=== PATIENT | male | born 1945 | race Caucasian/White ===

== ENCOUNTER 2022-09-21 13:39 | Inpatient (IN) ==
[2022-09-21] MEDS ORDERED: SODIUM CHLORIDE 0.9% 1000ML 500 ML IV ONE (14:00)
--- NOTE | 2022-09-21 14:09 | Emergency Department Note ---
Impression & Plan Stroke-like symptom ED Provider Note NAME: HAL [id number] DONY AGE: 76 SEX: M : 1945 ARRIVES VIA: Ambulance INFORMANT: EMS personnel, the notes from the senior care ED PROVIDER(S): Hansel Mansfield DO CHIEF COMPLAINT: Strokelike symptoms HPI: The patient is a 76-year-old male who presented to the emergency department for an evaluation of strokelike symptoms. The patient has a history of underlying dementia. He was recently our facility. He was in his last known well last evening but reportedly was having right-sided weakness this morning. The patient has severe dementia and is unable to give any of the history. He offers no chest pain or difficulty breathing. He denies having any nausea vomiting or abdominal pain. ROS: See above HPI for pertinent positives & negatives. A total of 10 systems reviewed and were otherwise negative. PAST MEDICAL HISTORY: See Below PAST SURGICAL HISTORY: See Below FAMILY HISTORY: See Below SOCIAL HISTORY: See Below HOME MEDICATIONS: See Below ALLERGIES: See Below VITALS: See Below PHYSICAL EXAMINATION: GENERAL: The patient is awake and looking around the room. He does not appear to be uncomfortable. EYES: The conjunctivae are clear. The pupils are round and reactive. EARS, NOSE, MOUTH AND THROAT: The nose is without any evidence of any deformity. Mucous membranes are dry. NECK: The neck is nontender and supple. RESPIRATORY: Normal respiratory effort is noted there is no evidence of wheezing rhonchi or rales CARDIOVASCULAR: Regular rate and rhythm noted there no murmurs rubs or gallops normal S1 normal S2. GASTROINTESTINAL: The abdomen is distended. There is no guarding or rigidity. MUSCULOSKELETAL/EXTREMITIES: There is no evidence of gross deformity full range of motion is noted in the hips and shoulders. SKIN: Skin is cool and dry. There is no significant edema NEUROLOGIC: Patient is awake but listless. He is oriented to person only. Patient is unable to lift the right leg off the bed. Patient has right upper extremity weakness as well. There is no definite facial droop but there was a reported facial droop according to prehospital personnel. MEDICAL DECISION MAKING: The patient is a 76-year-old male who presented to the emergency department from the senior care for an evaluation of right-sided weakness and does not give much history. On exam he does have right-sided weakness.The patient has some underlying dementia the patient initially was hypotensive. For this reason other laboratory and radiographic studies were obtained other than just a stroke work-up. The patient was reevaluated multiple times. His exam did not change very much. For this reason I [facility] agreed to evaluate the patient in the emergency department for further management and disposition. Triage Nursing notes reviewed. Prior medical records reviewed Vital Signs: reviewed and remarkable for initial hypotension. Differential diagnosis: Infection, dehydration, metabolic abnormality, hypo/hyperglycemia, electrolyte disturbance, anemia, hypoxia, cardiac sources, intracerebral event, toxicologic, neurologic, as well as other pathologies. ER treatment provided: See below Diagnostics interpreted by me: ECG: EKG was obtained in the emergency department. My interpretation is normal sinus rhythm at 85 bpm. There is no ectopy. There is no acute ST segment abnormalities noted. This was compared to a tracing from September 18, 2022. No changes were noted. Cardiac Monitoring: An order was placed for continuous cardiac monitoring. The monitor shows a rate of 89 bpm with sinus rhythm. Laboratory studies: As stated above and show below. Imaging studies: See below. Radiographic imaging was reviewed by myself Consultation(s): I discussed this case with Dr. Traore who [facility] Past Med/Surg History Medical History Dementia Weakness Social History Smoking Status: Never smoker Tobacco Type: Cigarettes Preferred Language: Afghan Feels Safe at Home: Yes Allergies Allergies Allergy/AdvReac Type Severity Reaction Status Date / Time No Known Allergies Allergy Verified 09/21/22 17:57 Home Meds Home Medications Medication Instructions Recorded Confirmed amlodipine 5 mg tablet 5 mg PO BID 09/21/22 09/21/22 cyanocobalamin (vitamin B-12) 500 500 mcg PO QAM 09/21/22 09/21/22 mcg tablet donepezil 5 mg tablet 5 mg PO QAM 09/21/22 09/21/22 Results & Data (ED) Vital Signs Vital Signs - 24 hr 09/21/22 13:31 09/21/22 13:31 09/21/22 13:58 Temperature 37.1 C Temperature Source Oral Pulse Rate 91 H 83 Pulse Rate [Apical] 91 H Pulse Rhythm Regular Pulse Rhythm [Apical] Regular Pulse Strength Normal Pulse Strength [Apical] Normal Respiratory Rate 16 16 Respiratory Effort / Characteristics Non-Labored Non-Labored Respiratory Depth Normal Normal Respiratory Pattern Regular Regular Blood Pressure 91/52 L Blood Pressure [Right Arm] 91/52 L Blood Pressure Mean 65 Blood Pressure Mean [Right Arm] 65 Blood Pressure Position Lying Pulse Oximetry 96 96 Oxygen Delivery Method Room Air Room Air Sepsis Recent Fever Within 48 Hours No Sepsis New/Unexplained Change in Mental Status No Sepsis Action Taken by Nursing No Action Required 09/21/22 14:08 09/21/22 14:34 09/21/22 17:27 Temperature Temperature Source Pulse Rate Pulse Rate [Apical] 94 H 84 87 Pulse Rhythm Pulse Rhythm [Apical] Pulse Strength Pulse Strength [Apical] Respiratory Rate 18 18 20 Respiratory Effort / Characteristics Non-Labored Non-Labored Respiratory Depth Normal Normal Respiratory Pattern Regular Regular Blood Pressure Blood Pressure [Right Arm] 91/52 L 108/72 129/81 Blood Pressure Mean Blood Pressure Mean [Right Arm] 65 84 97 Blood Pressure Position Pulse Oximetry 95 94 94 Oxygen Delivery Method Room Air Room Air Room Air Sepsis Recent Fever Within 48 Hours Sepsis New/Unexplained Change in Mental Status Sepsis Action Taken by Nursing 09/21/22 17:50 09/21/22 18:56 Temperature Temperature Source Pulse Rate 85 Pulse Rate [Apical] 89 Pulse Rhythm Pulse Rhythm [Apical] Pulse Strength Pulse Strength [Apical] Respiratory Rate 20 Respiratory Effort / Characteristics Respiratory Depth Respiratory Pattern Blood Pressure Blood Pressure [Right Arm] 140/88 Blood Pressure Mean Blood Pressure Mean [Right Arm] 105 Blood Pressure Position Pulse Oximetry 97 Oxygen Delivery Method Room Air Sepsis Recent Fever Within 48 Hours Sepsis New/Unexplained Change in Mental Status Sepsis Action Taken by Longterm Medications Current Medication List: was personally reviewed by me Laboratory Data Attestation: I reviewed the patient's lab results. 09/21/22 14:00 09/21/22 14:00 Lab Results 09/21/22 09/21/22 09/21/22 Range/Units 14:00 14:00 14:00 WBC 10.00 (4.8-10.8) K/ul RBC 4.55 L (4.70-6.10) M/uL Hgb 13.7 L (14.0-18.0) g/dl POC Hgb (14.0-18.0) g/dl Hct 41.1 L (42.0-52.0) % POC Hct (42-52) % MCV 90.3 (80.0-100.0) fL MCH 30.1 (25.0-34.0) pg MCHC 33.3 (32.0-36.0) g/dL RDW Std Deviation 40.2 (36.4-46.3) fL RDW Coeff of Jeannine 12.3 (11.5-14.5) % Plt Count 221 (130-400) K/uL MPV 11.4 (9.4-12.4) fL Immature Gran % (Auto) 0.3 % Neut % (Auto) 73.1 % Lymph % (Auto) 16.6 % Park % (Auto) 9.3 % Eos % (Auto) 0.5 % Baso % (Auto) 0.2 % Neut # (Auto) 7.31 H (1.40-6.50) K/uL Lymph # (Auto) 1.66 (1.2-3.4) K/uL Park # (Auto) 0.93 H (0.11-0.59) K/uL Eos # (Auto) 0.05 (0-0.50) K/uL Baso # (Auto) 0.02 (0-0.2) K/uL Immature Gran # (Auto) 0.03 (0.01-0.20) K/uL ESR (0-20) mm/hr PT 11.2 (9.0-12.0) Seconds INR 1.1 (0.9-1.1) APTT 27.0 (21.0-31.0) Seconds PTT Ratio 1.0 POC Sodium (135-144) mmol/L Sodium 136 (136-145) mmol/L POC Potassium (3.3-5.0) mmol/L Potassium 4.0 (3.5-5.1) mmol/L POC Chloride (101-112) mmol/L Chloride 101 (98-107) mmol/L Carbon Dioxide 25 (21-32) mmol/L POC Total CO2 (24-31) mmol/L Anion Gap 10 (3-11) POC Anion Gap (16-25) mmol/L POC BUN (7-18) mg/dl BUN 24 H (6-23) mg/dl Creatinine 0.71 (0.6-1.4) mg/dl POC Creatinine (0.6-1.3) mg/dl Est Cr Clr Drug Dosing 83.0 ml/min Est GFR ( Amer) 104.2 ml/min Est GFR (Non-Af Amer) 89.9 ml/min BUN/Creatinine Ratio 33.8 H (10-20) Glucose 121 H (70-99(Fasting)) mg/dl POC Glucose (other) (70-99) mg/dl Calcium 9.4 (8.6-10.3) mg/dl POC Ioniz Calcium Christelle (1.12-1.32) mmol/l Magnesium 2.3 (1.7-2.4) mg/dl Total Bilirubin 0.9 (0.2-1.0) mg/dl AST 53 H (13-39) U/L ALT 58 H (7-52) U/L Alkaline Phosphatase 112 H (34-104) U/L Troponin I High Sens 14.0 (0-20) pg/ml C-Reactive Protein 7.56 H (0-0.5) mg/dl Total Protein 7.4 (6.0-8.3) gm/dl Albumin 3.9 (3.4-5.0) gm/dl Globulin 3.5 (2.5-4.0) gm/dl Albumin/Globulin Ratio 1.1 (0.9-2) Procalcitonin (0-0.5) ng/ml Urine Color Urine Appearance (Clear) Urine pH (4.5-7.5) Ur Specific [place] (1.000-1.030) Urine Protein (Negative) Urine Glucose (UA) (Negative) Urine Ketones (Negative) Urine Blood (Negative) Urine Nitrite (Negative) Urine Bilirubin (Negative) Urine Urobilinogen (Negative) Ur Leukocyte Esterase (Negative) Urine WBC (Auto) (0-5) /hpf Urine RBC (Auto) (0-4) /hpf U Hyaline Cast (Auto) (0-5) /lpf U Epithel Cells (Auto) (0-5) /lpf Urine Bacteria (Auto) (Negative) Urine Opiates Screen (Neg) Ur Methadone, Qual (Neg) Urine Barbiturates (Neg) Ur Phencyclidine (PCP) (Neg) U Amphetamin/Meth Scrn (Neg) MDMA (Ecstasy) Screen (Neg) U Benzodiazepines Scrn (Neg) Ur Cocaine Metabolite (Neg) U Marijuana (THC) Screen (Neg) 09/21/22 09/21/22 09/21/22 Range/Units 14:00 14:17 14:31 WBC (4.8-10.8) K/ul RBC (4.70-6.10) M/uL Hgb (14.0-18.0) g/dl POC Hgb 14.6 (14.0-18.0) g/dl Hct (42.0-52.0) % POC Hct 43 (42-52) % MCV (80.0-100.0) fL MCH (25.0-34.0) pg MCHC (32.0-36.0) g/dL RDW Std Deviation (36.4-46.3) fL RDW Coeff of Jeannine (11.5-14.5) % Plt Count (130-400) K/uL MPV (9.4-12.4) fL Immature Gran % (Auto) % Neut % (Auto) % Lymph % (Auto) % Park % (Auto) % Eos % (Auto) % Baso % (Auto) % Neut # (Auto) (1.40-6.50) K/uL Lymph # (Auto) (1.2-3.4) K/uL Park # (Auto) (0.11-0.59) K/uL Eos # (Auto) (0-0.50) K/uL Baso # (Auto) (0-0.2) K/uL Immature Gran # (Auto) (0.01-0.20) K/uL ESR 60 H (0-20) mm/hr PT (9.0-12.0) Seconds INR (0.9-1.1) APTT (21.0-31.0) Seconds PTT Ratio POC Sodium 138 (135-144) mmol/L Sodium (136-145) mmol/L POC Potassium 3.9 (3.3-5.0) mmol/L Potassium (3.5-5.1) mmol/L POC Chloride 99 L (101-112) mmol/L Chloride (98-107) mmol/L Carbon Dioxide (21-32) mmol/L POC Total CO2 27 (24-31) mmol/L Anion Gap (3-11) POC Anion Gap 16.0 (16-25) mmol/L POC BUN 24 H (7-18) mg/dl BUN (6-23) mg/dl Creatinine (0.6-1.4) mg/dl POC Creatinine 0.7 (0.6-1.3) mg/dl Est Cr Clr Drug Dosing ml/min Est GFR ( Amer) ml/min Est GFR (Non-Af Amer) ml/min BUN/Creatinine Ratio (10-20) Glucose (70-99(Fasting)) mg/dl POC Glucose (other) 120 H (70-99) mg/dl Calcium (8.6-10.3) mg/dl POC Ioniz Calcium Christelle 1.05 L (1.12-1.32) mmol/l Magnesium (1.7-2.4) mg/dl Total Bilirubin (0.2-1.0) mg/dl AST (13-39) U/L ALT (7-52) U/L Alkaline Phosphatase (34-104) U/L Troponin I High Sens (0-20) pg/ml C-Reactive Protein (0-0.5) mg/dl Total Protein (6.0-8.3) gm/dl Albumin (3.4-5.0) gm/dl Globulin (2.5-4.0) gm/dl Albumin/Globulin Ratio (0.9-2) Procalcitonin 0.06 (0-0.5) ng/ml Urine Color Urine Appearance (Clear) Urine pH (4.5-7.5) Ur Specific [place] (1.000-1.030) Urine Protein (Negative) Urine Glucose (UA) (Negative) Urine Ketones (Negative) Urine Blood (Negative) Urine Nitrite (Negative) Urine Bilirubin (Negative) Urine Urobilinogen (Negative) Ur Leukocyte Esterase (Negative) Urine WBC (Auto) (0-5) /hpf Urine RBC (Auto) (0-4) /hpf U Hyaline Cast (Auto) (0-5) /lpf U Epithel Cells (Auto) (0-5) /lpf Urine Bacteria (Auto) (Negative) Urine Opiates Screen (Neg) Ur Methadone, Qual (Neg) Urine Barbiturates (Neg) Ur Phencyclidine (PCP) (Neg) U Amphetamin/Meth Scrn (Neg) MDMA (Ecstasy) Screen (Neg) U Benzodiazepines Scrn (Neg) Ur Cocaine Metabolite (Neg) U Marijuana (THC) Screen (Neg) 09/21/22 09/21/22 Range/Units 17:23 17:23 WBC (4.8-10.8) K/ul RBC (4.70-6.10) M/uL Hgb (14.0-18.0) g/dl POC Hgb (14.0-18.0) g/dl Hct (42.0-52.0) % POC Hct (42-52) % MCV (80.0-100.0) fL MCH (25.0-34.0) pg MCHC (32.0-36.0) g/dL RDW Std Deviation (36.4-46.3) fL RDW Coeff of Jeannine (11.5-14.5) % Plt Count (130-400) K/uL MPV (9.4-12.4) fL Immature Gran % (Auto) % Neut % (Auto) % Lymph % (Auto) % Park % (Auto) % Eos % (Auto) % Baso % (Auto) % Neut # (Auto) (1.40-6.50) K/uL Lymph # (Auto) (1.2-3.4) K/uL Park # (Auto) (0.11-0.59) K/uL Eos # (Auto) (0-0.50) K/uL Baso # (Auto) (0-0.2) K/uL Immature Gran # (Auto) (0.01-0.20) K/uL ESR (0-20) mm/hr PT (9.0-12.0) Seconds INR (0.9-1.1) APTT (21.0-31.0) Seconds PTT Ratio POC Sodium (135-144) mmol/L Sodium (136-145) mmol/L POC Potassium (3.3-5.0) mmol/L Potassium (3.5-5.1) mmol/L POC Chloride (101-112) mmol/L Chloride (98-107) mmol/L Carbon Dioxide (21-32) mmol/L POC Total CO2 (24-31) mmol/L Anion Gap (3-11) POC Anion Gap (16-25) mmol/L POC BUN (7-18) mg/dl BUN (6-23) mg/dl Creatinine (0.6-1.4) mg/dl POC Creatinine (0.6-1.3) mg/dl Est Cr Clr Drug Dosing ml/min Est GFR ( Amer) ml/min Est GFR (Non-Af Amer) ml/min BUN/Creatinine Ratio (10-20) Glucose (70-99(Fasting)) mg/dl POC Glucose (other) (70-99) mg/dl Calcium (8.6-10.3) mg/dl POC Ioniz Calcium Christelle (1.12-1.32) mmol/l Magnesium (1.7-2.4) mg/dl Total Bilirubin (0.2-1.0) mg/dl AST (13-39) U/L ALT (7-52) U/L Alkaline Phosphatase (34-104) U/L Troponin I High Sens (0-20) pg/ml C-Reactive Protein (0-0.5) mg/dl Total Protein (6.0-8.3) gm/dl Albumin (3.4-5.0) gm/dl Globulin (2.5-4.0) gm/dl Albumin/Globulin Ratio (0.9-2) Procalcitonin (0-0.5) ng/ml Urine Color Yellow Urine Appearance Clear (Clear) Urine pH 6.5 (4.5-7.5) Ur Specific [place] > 1.045 H (1.000-1.030) Urine Protein Trace H (Negative) Urine Glucose (UA) Negative (Negative) Urine Ketones 1+ H (Negative) Urine Blood Negative (Negative) Urine Nitrite Negative (Negative) Urine Bilirubin Negative (Negative) Urine Urobilinogen Negative (Negative) Ur Leukocyte Esterase Negative (Negative) Urine WBC (Auto) 1-5 (0-5) /hpf Urine RBC (Auto) 0-4 (0-4) /hpf U Hyaline Cast (Auto) 0 (0-5) /lpf U Epithel Cells (Auto) 5-10 H (0-5) /lpf Urine Bacteria (Auto) Negative (Negative) Urine Opiates Screen Neg (Neg) Ur Methadone, Qual Neg (Neg) Urine Barbiturates Neg (Neg) Ur Phencyclidine (PCP) Neg (Neg) U Amphetamin/Meth Scrn Neg (Neg) MDMA (Ecstasy) Screen Neg (Neg) U Benzodiazepines Scrn Neg (Neg) Ur Cocaine Metabolite Neg (Neg) U Marijuana (THC) Screen Neg (Neg) Administered Medications Discontinued Medications Sodium Chloride (Nss 1000ml) 500 mls @ 999 mls/hr IV .Q31M ONE Stop: 09/21/22 14:30 Last Infusion: 09/21/22 14:54 Dose: 0 mls/hr Documented By: Admin: 09/21/22 14:23 Dose: 999 mls/hr Documented By: YEFRI Ioversol (Optiray 320 500ml) 109 ml IV ONCE ONE Stop: 09/21/22 14:54 Last Admin: 09/21/22 14:53 Dose: 109 ml Documented By: ROMEO Imaging Data Attestation: I personally reviewed and interpreted this imaging study as follows: My Impression: CT of the head was obtained in the emergency department. My interpretation is no intracranial hemorrhage, no mass effect, final report below. Radiologist's Impression: Chest X-Ray 09/21/22 13:42 XR chest 1V portable CLINICAL HISTORY: neuro deficit, acute stroke suspected TECHNIQUE: Single frontal radiograph of the chest was obtained. Comparison: Comparison is made to chest radiograph 09/18/2022 FINDINGS: No lines and tubes are seen. Calcified aortic knob is seen. Lungs are underinflated but clear. No evidence of pleural effusion or pneumothorax. IMPRESSION: Atelectasis is seen without evidence of acute abnormality. ACT 112: Negative or not required by law. Electronically signed by: Jose Jaeger M.D. 09/21/2022 3:[address] 09/21/22 13:42 CT OF THE HEAD WITHOUT CONTRAST CLINICAL HISTORY: neuro deficit, acute stroke suspected COMPARISON STUDY: Head CT September 21, 2022. TECHNIQUE: Helical axial images of the head were obtained without IV contrast. Automated exposure control was utilized for the study. A dose lowering technique was utilized adhering to the principles of ALARA. FINDINGS: No acute intracranial hemorrhage, midline shift or mass effect is present. White matter hypodensities are unchanged and suggest small vessel disease. Suspected old lacunar infarcts within the right internal capsule and caudate nucleus are noted. These are unchanged. The ventricular system is unremarkable. The basal cisterns are patent. No extra-axial collections are pres ent. There are no findings to suggest acute dural sinus thrombosis or acute territorial infarct. No significant calvarial abnormalities are present. Visualized portions of the sinuses and mastoid air cells are clear. IMPRESSION: No acute intracranial findings. No change in appearance of the brain. ACT 112: Negative or not required by law. Electronically signed by: Rajiv King M.D. 09/21/2022 3:14 PM Head CTA 09/21/22 13:42 CT angio neck with con, CT angio head w con CLINICAL HISTORY: neuro deficit, acute stroke suspected TECHNIQUE: CT angiography of the head and neck was performed following intravenous administration of iodinated contrast. Coronal and sagittal MIPS were obtained from the axial data set and were submitted for review. Automated dose lowering techniques and/or adjustment according to patient size were utilized for this examination. All measurements were calculated based on NASCET criteria. Comparison: Comparison is made to CT head 09/21/[address] head 09/18/2022 FINDINGS: Lungs and soft tissues are unremarkable. CTA Neck: A 3 vessel aortic arch is shown. There is no significant atheroscle rotic plaque in the aortic arch or the origins of the innominate, left common carotid, and left subclavian arteries. There is narrowing of the origin of the left vertebral artery which may not be hemodynamically significant. Atherosclerotic disease is seen in the bilateral carotid bulbs and carotid arteries The right vertebral artery is dominant. CTA Head: The anterior and posterior cerebral circulations are patent. 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 There is a 3 mm saccular aneurysm in the left MCA M1 segment. IMPRESSION: 1. No occlusion, hemodynamically significant stenosis, or dissection in the major cervical arteries. 2. 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 Assessment of stenosis of the internal carotid arteries is based on NASCET criteria. ACT 112: Negative or not required by law. Electronically signed by: Jose Jaeger M.D. 09/21/2022 3:21 PM Neck CTA 09/21/22 13:42 CT angio neck with con, CT angio head w con CLINICAL HISTORY: neuro deficit, acute stroke suspected TECHNIQUE: CT angiography of the head and neck was performed following intravenous administration of iodinated contrast. Coronal and sagittal MIPS were obtained from the axial data set and were submitted for review. Automated dose lowering techniques and/or adjustment according to patient size were utilized for this examination. All measurements were calculated based on NASCET criteria. Comparison: Comparison is made to CT head 09/21/[address] head 09/18/2022 FINDINGS: Lungs and soft tissues are unremarkable. CTA Neck: A 3 vessel aortic arch is shown. There is no significant atherosclerotic plaque in the aortic arch or the origins of the innominate, left common carotid, and left subclavian arteries. There is narrowing of the origin of the left vertebral artery which may not be hemodynamically significant. Atherosclerotic disease is seen in the bilateral carotid bulbs and carotid arteries The right vertebral artery is dominant. CTA Head: The anterior and posterior cerebral circulations are patent. 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 There is a 3 mm saccular aneurysm in the left MCA M1 segment. IMPRESSION: 1. No occlusion, hemodynamically significant stenosis, or dissection in the major cervical arteries. 2. 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 Assessment of stenosis of the internal carotid arteries is based on NASCET criteria. ACT 112: Negative or not required by law. Electronically signed by: Jose Jaeger M.D. 09/21/2022 3:21 PM Abdomen/Pelvis CT 09/21/22 14:[address] WITH IV CONTRAST CT DOSE: 1753.40 mGy.cm HISTORY: Acute hypotension hypotension TECHNIQUE: Multiaxial CT images of the abdomen and pelvis were performed following the IV administration of 109 cc of Optiray, A dose lowering technique was utilized adhering to the principles of ALARA. COMPARISON STUDY: None. FINDINGS: Study is limited secondary to upper extremity positioning. Extensive coronary artery calcifications. Pleural calcifications with dependent subsegmental bibasilar opacities favoring atelectasis. Mild left basilar predominant mucus plugging. There is no pneumatosis or pneumoperitoneum. Unremarkable spleen, pancreas, gallbladder and adrenal glands. 10 mm hypodense focus of the right hepatic lobe on image 18, likely a cyst. There is patency of the hepatic and portal veins. There is no hydronephrosis. Urinary bladder wall thickening with partial distention. Prostamegaly. Atherosclerosis of the abdominal aorta and branch vessels. Fusiform dilation of the distal abdominal aorta just proximal to the iliac bifurcation measures up to 3 cm. The right common iliac artery is dilated measuring up to 2.5 cm transversely. Fusiform aneurysm dilation of the left internal iliac artery measures up to 3.6 cm. No aneurysm rupture. No lymphadenopathy. Retroaortic left renal vein. No bowel obstruction or bowel wall thickening. Moderate colonic fecal retention. Normal appendix. Unremarkable soft tissues. No acute fracture. IMPRESSION: 1 no acute intra-abdominal or intrapelvic abnormality identified. 2. No bowel obstruction or bowel wall thickening. 3. Mild fusiform aneurysmal dilation of the distal abdominal aorta measuring up to 3 cm with additional aneurysmal dilation of the iliac arteries. No evidence of aneurysm rupture. 4. Additional findings as above. ACT 112: Negative or not required by law. The above report was generated using voice recognition software. It may contain grammatical, syntax or spelling errors. Electronically signed by: Laci Barnett M.D. 09/21/2022 3:25 PM Discharge Plan Visit Data Chief Complaint: Stroke/CVA Symptoms Stated Complaint: Rt sided weakness and Facial droop since 0600 ED Provider: Hansel Mansfield Discharge Problem: Stroke-like symptom Patient Disposition: Being Evaluated by Hospitalist Forms Stand Alone Forms: My [facility] Prescriptions Prescriptions: No Action amlodipine 5 mg Tablet 5 mg PO BID donepezil 5 mg Tablet 5 mg PO QAM cyanocobalamin (vitamin B-12) 500 mcg Tablet 500 mcg PO QAM Referrals Referrals: Jurgen FELICIANO [Primary Care Provider] -
[2022-09-21 14:21] LABS: Basophils # (auto) 0.02 K/uL (0-0.2); Basophils % (auto) 0.2 %; Eosinophils # (auto) 0.05 K/uL (0-0.50); Eosinophils % (auto) 0.5 %; Hematocrit (blood only) 41.1 % (42.0-52.0); Hemoglobin 13.7 g/dl (14.0-18.0); Immature Granulocytes # (auto) 0.03 K/uL (0.01-0.20); Immature Granulocytes % (auto) 0.3 %; Lymphocytes # (auto) 1.66 K/uL (1.2-3.4); Lymphocytes % (auto) 16.6 %; Mean Corpuscular Hemoglobin 30.1 pg (25.0-34.0); Mean Corpuscular Hgb Conc 33.3 g/dL (32.0-36.0); Mean Corpuscular Volume 90.3 fL (80.0-100.0); Mean Platelet Volume 11.4 fL (9.4-12.4); Monocytes # (auto) 0.93 K/uL (0.11-0.59); Monocytes % (auto) 9.3 %; Neutrophils # (auto) 7.31 K/uL (1.40-6.50); Neutrophils % (auto) 73.1 %; Platelet Count 221 K/uL (130-400); RDW Coefficient of Variation 12.3 % (11.5-14.5); RDW Standard Deviation 40.2 fL (36.4-46.3); Red Blood Count 4.55 M/uL (4.70-6.10)
[2022-09-21] MEDS ORDERED: OPTIRAY 320 500ml IV ONE (14:53)
[2022-09-21 14:57] LABS: INR 1.1 (0.9-1.1); Prothrombin Time 11.2 Seconds (9.0-12.0)
--- NOTE | 2022-09-21 15:15 | CT Scan Report ---
CT OF THE HEAD WITHOUT CONTRAST CLINICAL HISTORY: neuro deficit, acute stroke suspected COMPARISON STUDY: Head CT September 21, 2022. TECHNIQUE: Helical axial images of the head were obtained without IV contrast. Automated exposure con trol was utilized for the study. A dose lowering technique was utilized adhering to the principles o f ALARA. FINDINGS: No acute intracranial hemorrhage, midline shift or mass effect is present. White matter hyp odensities are unchanged and suggest small vessel disease. Suspected old lacunar infarcts within the right internal capsule and caudate nucleus are noted. These are unchanged. The ventricular system is unremarkable. The basal cisterns are patent. No extra-axial collections are present. There are no fin dings to suggest acute dural sinus thrombosis or acute territorial infarct. No significant calvarial abnormalities are present. Visualized portions of the sinuses and mastoid air cells are clear. IMPRESSION: No acute intracranial findings. No change in appearance of the brain. ACT 112: Negative or not required by law. Electronically signed by: Rajiv King M.D. 09/21/2022 3:14 PM
[2022-09-21 15:16] LABS: Albumin Globulin Ratio 1.1 (0.9-2); Albumin Level 3.9 gm/dl (3.4-5.0); BUN Creatinine Ratio 33.8 (10-20); Bilirubin,Total 0.9 mg/dl (0.2-1.0); C Reactive Protein 7.56 mg/dl (0-0.5); Calcium 9.4 mg/dl (8.6-10.3); Est GFR (African American) 104.2 ml/min; Est GFR (Non-African American) 89.9 ml/min; Globulin 3.5 gm/dl (2.5-4.0); Magnesium 2.3 mg/dl (1.7-2.4); Total Protein 7.4 gm/dl (6.0-8.3)
--- NOTE | 2022-09-21 15:24 | CT Scan Report ---
CT angio neck with con, CT angio head w con CLINICAL HISTORY: neuro deficit, acute stroke suspected TECHNIQUE: CT angiography of the head and neck was performed following intravenous administration of iodinated contrast. Coronal and sagittal MIPS were obtained from the axial data set and were submitte d for review. Automated dose lowering techniques and/or adjustment according to patient size were ut ilized for this examination. All measurements were calculated based on NASCET criteria. Comparison: Comparison is made to CT head 09/21/[address] head 09/18/2022 FINDINGS: Lungs and soft tissues are unremarkable. CTA Neck: A 3 vessel aortic arch is shown. There is no significant atherosclerotic plaque in the aor tic arch or the origins of the innominate, left common carotid, and left subclavian arteries. There is narrowing of the origin of the left vertebral artery which may not be hemodynamically significant. Atherosclerotic disease is seen in the bilateral carotid bulbs and carotid arteries The right verteb ral artery is dominant. CTA Head: The anterior and posterior cerebral circulations are patent. There is a 7 mm saccular aneu rysm in the right V4 segment of the vertebral artery. There is a 3 mm saccular aneurysm in the left M CA M1 segment. IMPRESSION: 1. No occlusion, hemodynamically significant stenosis, or dissection in the major cervical arteries. 2. Saccular aneurysms are seen in the right V4 segment, measuring 7 mm, and in the left MCA M1 segme nt, measuring 3 mm. Assessment of stenosis of the internal carotid arteries is based on NASCET criteria. ACT 112: Negative or not required by law. Electronically signed by: Jose Jaeger M.D. 09/21/2022 3:21 PM
--- NOTE | 2022-09-21 15:26 | CT Scan Report ---
ABDOMEN AND PELVIS CT WITH IV CONTRAST CT DOSE: 1753.40 mGy.cm HISTORY: Acute hypotension hypotension TECHNIQUE: Multiaxial CT images of the abdomen and pelvis were performed following the IV administrat ion of 109 cc of Optiray, A dose lowering technique was utilized adhering to the principles of ALARA . COMPARISON STUDY: None. FINDINGS: Study is limited secondary to upper extremity positioning. Extensive coronary artery calcif ications. Pleural calcifications with dependent subsegmental bibasilar opacities favoring atelectasis . Mild left basilar predominant mucus plugging. There is no pneumatosis or pneumoperitoneum. Unremarkable spleen, pancreas, gallbladder and adrenal glands. 10 mm hypodense focus of the right hep atic lobe on image 18, likely a cyst. There is patency of the hepatic and portal veins. There is no h ydronephrosis. Urinary bladder wall thickening with partial distention. Prostamegaly. Atherosclerosis of the abdominal aorta and branch vessels. Fusiform dilation of the distal abdominal aorta just prox imal to the iliac bifurcation measures up to 3 cm. The right common iliac artery is dilated measuring up to 2.5 cm transversely. Fusiform aneurysm dilation of the left internal iliac artery measures up to 3.6 cm. No aneurysm rupture. No lymphadenopathy. Retroaortic left renal vein. No bowel obstruction or bowel wall thickening. Moderate colonic fecal retention. Normal appendix. Unr emarkable soft tissues. No acute fracture. IMPRESSION: 1 no acute intra-abdominal or intrapelvic abnormality identified. 2. No bowel obstruction or bowel wall thickening. 3. Mild fusiform aneurysmal dilation of the distal abdominal aorta measuring up to 3 cm with addition al aneurysmal dilation of the iliac arteries. No evidence of aneurysm rupture. 4. Additional findings as above. ACT 112: Negative or not required by law. The above report was generated using voice recognition software. It may contain grammatical, syntax o r spelling errors. Electronically signed by: Laci Barnett M.D. 09/21/2022 3:25 PM
--- NOTE | 2022-09-21 15:36 | XRay Report ---
XR chest 1V portable CLINICAL HISTORY: neuro deficit, acute stroke suspected TECHNIQUE: Single frontal radiograph of the chest was obtained. Comparison: Comparison is made to chest radiograph 09/18/2022 FINDINGS: No lines and tubes are seen. Calcified aortic knob is seen. Lungs are underinflated but clear. No deacon dence of pleural effusion or pneumothorax. IMPRESSION: Atelectasis is seen without evidence of acute abnormality. ACT 112: Negative or not required by law. Electronically signed by: Jose Jaeger M.D. 09/21/2022 3:34 PM
[2022-09-21 15:58] LABS: iSTAT Creatinine 0.7 mg/dl (0.6-1.3); iSTAT Hemoglobin 14.6 g/dl (14.0-18.0); iSTAT Ionized Calcium 1.05 mmol/l (1.12-1.32); iSTAT Potassium 3.9 mmol/L (3.3-5.0)
--- NOTE | 2022-09-21 17:59 | Electrocardiogram Report ---
Test Reason : Blood Pressure : / mmHG Vent. Rate : 085 BPM Atrial Rate : 085 BPM P-R Int : 152 ms QRS Dur : 084 ms QT Int : 356 ms P-R-T Axes : 048 051 063 degrees QTc Int : 423 ms Poor data quality, interpretation may be adversely affected Normal sinus rhythm Normal ECG When compared with ECG of 18-SEP-2022 11:11, No significant change was found Confirmed by Brian Sharma ([id number]) on 09/21/2022 5:58:37 PM Referred By: [facility] Confirmed By:Donovan Sharma
[2022-09-21 18:16] LABS: Amphetamines+Metham, Urine Neg (Neg); Barbiturates, Urine Neg (Neg); Benzodiazepine, Urine Neg (Neg); Cocaine, Urine Neg (Neg); MDMA (Ecstacy), Urine Neg (Neg); Methadone, Urine Neg (Neg); Opiate, Urine Neg (Neg); Phencyclidine, Urine Neg (Neg)
[2022-09-21 18:35] LABS: Appearance Urine Clear (Clear); Bacteria Urine Automated Negative (Negative); Bilirubin Urine Negative (Negative); Blood Urine Negative (Negative); Cast Urine Automated 0 /lpf (0-5); Color Urine Yellow; Glucose Urine UA Negative (Negative); Ketones Urine 1+ (Negative); Leukocyte Esterase Urine Negative (Negative); Nitrite Urine Negative (Negative); Protein Urine Trace (Negative); RBC Urine Automated 0-4 /hpf (0-4); Specific Gravity Urine > 1.045 (1.000-1.030); Urobilinogen Urine Negative (Negative); pH Urine 6.5 (4.5-7.5)
[2022-09-21] MEDS ORDERED: LABETALOL HCL IV 5 MG/ML 20ML IV PRN (22:16)
[2022-09-21] MEDS ORDERED: ONDANSETRON INJ 2 MG/ML 2 ML VIAL IV PRN (22:16)
[2022-09-21] MEDS ORDERED: NITROGLYCERIN SL 0.4 MG/TAB TAB SL PRN (22:16)
[2022-09-21] MEDS ORDERED: PHARMACIST DISCHARGE MED REC CONSULT PRN (22:16)
[2022-09-21] MEDS: SODIUM CHLORIDE 0.9% 1000ML 1,000 ML IV SCH (23:57)
--- NOTE | 2022-09-22 02:35 | History and Physical Report ---
CHIEF COMPLAINT: Lightheaded, weakness. HISTORY OF PRESENT ILLNESS: A 76-year-old male with history of severe dementia, coming from care home with stroke-like symptoms. The patient recently came to care home and we don't know whether he can ambulate or not, but it looks like yesterday morning he was ok and today morning, he was having weakness in the right side. He was not moving his right upper and lower extremity,. As per guards while in CAT scan, he was able to lift his right leg, but now again he is not lifting the right leg.He is able to lift left extremities on command. He is currently can tell his name, knows he is in the hospital, but could not tell his date of , could not tell the current date. The patient denies any headache. Speech is somewhat low volume, but okay.Possible right facial droop Denies any chest pain. Denies any neck pain. Denies any back pain. Denies abdominal pain, denies nausea or vomiting. Denies cough. Afebrile.Somewhat poor historian. ALLERGIES: No known drug allergies. PAST MEDICAL HISTORY: dementia and hypertension. PAST SURGICAL HISTORY: Currently unknown. FAMILY HISTORY: Unknown. SOCIAL HISTORY: Unknown at this time. REVIEW OF SYSTEMS:Complete review of systems could not be obtained as the patient has severe dementia. PHYSICAL EXAMINATION: GENERAL: The patient is alert and awake, oriented to name and place only. VITAL SIGNS: Temperature, T-max 37.8, pulse 102, respiratory rate 18, blood pressure 147/89, oxygen 95% on room air. HEENT: Pupils equal, round and reactive to light. Oral mucosa moist. NECK: No JVD or neck masses. CARDIOVASCULAR: S1 and S2 heard. Regular rate and rhythm. No murmur, no gallop. RESPIRATORY SYSTEM: Normal AP diameter. No accessory muscle use. No wheezing, no crackles. ABDOMEN: Soft, bowel sounds present, nontender, no distention. CENTRAL NERVOUS SYSTEM: Alert and awake, oriented to name and place. Possible questionable right facial droop and decreased tongue out. There is no deviation of tongue seen. Obeying simple commands. Not able to move his right extremities on command. 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 EXTREMITIES: No edema, no erythema. LABORATORY DATA: WBC 10, hemoglobin 13.7, hematocrit 41.1, platelets 221. ESR 60. PT 11.2, INR 1.1, APTT 27. Sodium 136, potassium 4, chloride 101, CO2 of 25, BUN 24, creatinine 0.7, serum glucose 121, calcium 9.4, magnesium 2.3, total bilirubin 0.9, AST 53, ALT 58, alkaline phosphatase 112. Troponin I high sensitivity 14. C-reactive protein 12.56. Procalcitonin 0.06. Urinalysis negative. Toxicology screen negative. SARS-COVID rapid test negative. IMAGING DATA: CT of the abdomen and pelvis with IV contrast, no acute findings. Mild fusiform aneurysm with aneurysmal dilatation of the distal abdominal aorta measuring up to 3 cm with additional aneurysmal dilatation of the iliac arteries. No evidence of aneurysm rupture. CTA of the neck, 1. No occlusion, hemodynamically significant stenosis, or dissection in the major cervical arteries. 2. Saccular aneurysms are seen in the right V4 segment, measuring 7 mm, and in the left MCA M1 segment, measuring 3 mm CTA of the head,1. No occlusion, hemodynamically significant stenosis, or dissection in the major cervical arteries. 2. 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 of the head without contrast, no acute findings. Chest x-ray, no acute findings. EKG: Normal sinus rhythm, rate of 85, no acute ST changes seen. ASSESSMENT AND PLAN: 1.This is a 76-year-old male who presents with stroke-like symptoms with right-sided weakness. Initial workup with CTA of the head and neck mostly unremarkable. We will do full stroke workup with MRI scan, echocardiogram, speech evaluation. Neurology evaluation in the a.m. Monitor in the tele floor. We will allow for permissive hypertension. 2. History of hypertension. We will hold his amlodipine for permissive hypertension. Placed on IV labetalol p.r.n. 3. Abdominal and brain aneurysms. Needs followup. 4. Deep venous thrombosis prophylaxis: Sequential compression devices for now. DISPOSITION: Admit to tele floor. Expect to discharge back to care home when stable. Level 1 full code. Job ID: [id number] MTDD
[2022-09-22 08:23] LABS: Albumin Level 3.4 gm/dl (3.4-5.0); BUN Creatinine Ratio 34.5 (10-20); Bilirubin Direct 0.2 mg/dl (0-0.2); Bilirubin,Total 0.8 mg/dl (0.2-1.0); Calcium 8.6 mg/dl (8.6-10.3); Chol HDL Ratio 5.8 (0-5); Creatinine Clr Calc Pharmacy 101.6 ml/min; Est GFR (African American) 113.2 ml/min; Est GFR (Non-African American) 97.7 ml/min; Potassium 3.7 mmol/L (3.5-5.1); Total Protein 6.4 gm/dl (6.0-8.3)
[2022-09-22 08:31] LABS: Basophils # (auto) 0.02 K/uL (0-0.2); Basophils % (auto) 0.2 %; Eosinophils # (auto) 0.08 K/uL (0-0.50); Hematocrit (blood only) 36.1 % (42.0-52.0); Hemoglobin 12.2 g/dl (14.0-18.0); Immature Granulocytes # (auto) 0.02 K/uL (0.01-0.20); Immature Granulocytes % (auto) 0.2 %; Lymphocytes # (auto) 1.25 K/uL (1.2-3.4); Lymphocytes % (auto) 14.8 %; Mean Corpuscular Hemoglobin 29.9 pg (25.0-34.0); Mean Corpuscular Hgb Conc 33.8 g/dL (32.0-36.0); Mean Corpuscular Volume 88.5 fL (80.0-100.0); Mean Platelet Volume 11.3 fL (9.4-12.4); Monocytes # (auto) 0.96 K/uL (0.11-0.59); Monocytes % (auto) 11.4 %; Neutrophils # (auto) 6.09 K/uL (1.40-6.50); Neutrophils % (auto) 72.4 %; Platelet Count 224 K/uL (130-400); RDW Coefficient of Variation 12.3 % (11.5-14.5); RDW Standard Deviation 39.8 fL (36.4-46.3); Red Blood Count 4.08 M/uL (4.70-6.10); White Blood Count 8.42 K/ul (4.8-10.8)
[2022-09-22 08:53] LABS: Estimated Average Glucose 108 mg/dl; Hemoglobin A1C 5.4 % (4.5-5.6)
[2022-09-22] MEDS ORDERED: GADOBUTROL 65ML VIAL IV ONE (10:17)
--- NOTE | 2022-09-22 10:42 | Neurology Consultation ---
Date of Consultation September 22, 2022 Assessment & Plan (1) Ischemic stroke: Plan NEUROLOGY CONSULTATION Assessment & Plan: Impression: pt with acute ischemic stroke in left brainstem. pt with rt hemiparesis. pt with baseline dementia. CTA head/neck without LVO. Recommendations: * Standard stroke work up and care as planned. * Antiplatelet therapy: * DAPT: ABCD2 score 4 or higher.Initial loading dose with ASA 325mg and Plavix 300mg, then ASA 81mg daily and Plavix 75mg daily. Continue DAPT for 21 days if found small vessel disease only or continue for 90 days if found to have intracranial large artery atherosclerosis.After DAPT, can continue single antiplatelet therapy. * Images: TTE with bubble. * Permissive Hypertension next 48 hrs. Keep SBP goal range less than 220. Avoid hypotension. Do not stop beta-tai if on it. * * Long-term SBP goal less than 130. * Plenty of hydration including IV fluid (use isotonic solution) next 1-2 days if possible. Avoid hypovolemia and hypotension. * Initiate DVT prevention therapy * Avoid hypoglycemia, serum glucose goal during hospitalization: 140-180 * Long-term HgA1c goal less than 7 * Start statin if not on it.Long-term LDL goal of less than 70. * Head of bed up 30 degree if possible. * Telemetry monitoring.Please order MCOT (mobile cardiac outpatient telemetry) orICM (insertable planer setter) if never had parts counterman cardiac monitoring previously. And if found to have atrial flutter or fibrillation, should consider anticoagulation therapy if no contraindication. * Fall precaution and aspiration precaution. * Physical/occupational therapy and speech path evaluations. * Consider nutritional consult * please call again if new question. Dr. Som Bradley MD [facility] Neurology Chief Complaint: weakness History of Present Illness: pt this morning alert and with rt hemiparesis, arm greater than leg. mri brain showing acute ischemic stroke left midbrain peduncle area. pt swallowing soft diet ok. Admission/Initial HPI documentation: A 76-year-old male with history of severe dementia, coming from intermediate with stroke-like symptoms. The patient recently came to intermediate and we don't know whether he can ambulate or not, but it looks like yesterday morning he was ok and today morning, he was having weakness in the right side. He was not moving his right upper and lower extremity,. As per guards while in CAT scan, he was able to lift his right leg, but now again he is not lifting the right leg.He is able to lift left extremities on command. He is currently can tell his name, knows he is in the hospital, but could not tell his date of , could not tell the current date. The patient denies any headache. Speech is somewhat low volume, but okay.Possible right facial droop Denies any chest pain. Denies any neck pain. Denies any back pain. Denies abdominal pain, denies nausea or vomiting. Denies cough. Afebrile.Somewhat poor historian. Past Medical History: See chart Meds: See chart I personally reviewed all of the medications Social & Family History: See chart Review of Systems: Per initial HPI on admission. Physical Exam: GEN: NAD HEENT: Normocephalic Neuro: Mental status:Alert, follows simple command. making some moaning sounds. No neglect. . No apraxia Cranial Nerves:II-XII intact grossly, able to swallow soft diet without choking. symmetric appearing face. Motor:RUE with flaccid weakness t/o. left side intact grossly. RLE with grossly 3+/5 t/o. Coordination:Intact left arm grossly. Reflexes:rt toes upgoing. left mute. Sensation: withdraws to pain b/l Chart reviewed I have spent more than 50% educating patient about potential diagnosis and neurological evaluation and coordinating care with patient's treatment team. Total time spent (including chart review and coordination of care): 80 min (this includes chart review). History of Present Illness Attending Physician: Kamala Vegas MD Allergies Allergy/AdvReac Type Severity Reaction Status Date / Time No Known Allergies Allergy Verified 09/21/22 17:57 Home Medications Medication Instructions Recorded Confirmed Type amlodipine 5 mg tablet 5 mg PO BID 09/21/22 09/21/22 History cyanocobalamin (vitamin B-12) 500 500 mcg PO QAM 09/21/22 09/21/22 History mcg tablet donepezil 5 mg tablet 5 mg PO QAM 09/21/22 09/21/22 History Patient History Medical History Dementia Weakness Social History Smoking Status: Unknown if ever smoked Tobacco Type: Cigarettes Hx Alcohol Use: No (inmate so assumed no) Hx Substance Use: No (unknown history) Preferred Language: Maori Communication Ability: Impaired Communication Ability Comment: Pt is able to follow simple commands Lei Seller Required: No Beliefs That Will Affect Care: None Current Living Situation: Other Other Information That Helps Us Care for You: No Feels Safe at Home: Yes Assistive Devices: None Results & Data Vital Signs (Past 12 Hours) Vital Signs Temp Pulse Pulse Resp BP Pulse Ox O2 Del Method 09/22/22 08:00 88 09/22/22 07:15 36.8 C 85 18 118/82 95 Room Air 09/22/22 02:19 36.8 C 81 20 142/88 H 96 Room Air 09/22/22 00:36 94 H
--- NOTE | 2022-09-22 10:43 | Magnetic Resonance Report ---
MR brain wo/w con CLINICAL HISTORY: stroke like symptoms TECHNIQUE: Multiplanar and multisequence MR images of the brain were obtained prior to and following administration of gadolinium contrast. FINDINGS: There is restricted diffusion in the left rosalia. There is associated T2 edema. Foci of T2 and FLAIR hy perintensity are noted in the paraventricular areas consistent with chronic small vessel ischemic dis ease. Ex vacuo ventriculomegaly and sulcal enlargement is noted compatible with diffuse volume loss. T2 hyperintense focus in the left anterior capsule is nonspecific and may represent sequelae of prior infarct There is no mass effect or midline shift. There is no evidence of acute intraparenchymal hem orrhage. No extra axial fluid collections are seen. The corpus callosum, pituitary gland, and cerebel lar tonsils appear grossly unremarkable. Flow voids of the major intracranial arterial vessels are identified. The imaged portions of the para nasal sinuses, mastoid air cells, and orbits are unremarkable. IMPRESSION: Restricted diffusion in the left rosalia is compatible with acute infarct. No hemorrhage is seen. Additi onal chronic findings as above. ACT 112: Negative or not required by law. Electronically signed by: Jose Jaeger M.D. 09/22/2022 10:42 AM
[2022-09-22] MEDS: SODIUM CHLORIDE 0.9% 1000ML 1,000 ML IV SCH (13:05)
[2022-09-22] MEDS ORDERED: CLOPIDOGREL BISULFATE 300 MG TAB PO ONE (15:00)
[2022-09-22] MEDS ORDERED: ASPIRIN 325 MG ECTAB PO ONE (15:00)
--- NOTE | 2022-09-22 17:05 | Hospitalist Progress Note ---
Date of Service September 22, 2022 Assessment & Plan (1) Ischemic stroke: Plan: Presented with right-sided weakness and strokelike symptoms Noted to have acute ischemic stroke in left brainstem-MRI did show restricted diffusion in the left rosalia which is compatible with acute infarct Appreciate neurology input and recommendation Will start dual antiplatelet therapy for 21 days followed by single antiplatelet therapy Started on statin Echo of the heart showed hyperdynamic left ventricle, EF of 70%, borderline concentric LVH, aortic valve sclerosis mild without significant stenosis, trace TR, Doppler findings do not suggest pulmonary hypertension and no interatrial shunt CTA did show right V4 segment aneurysm measuring 7 mm left MCA M1 segment aneurysm level measuring 3 mm He has been feeling a little better (2) Dementia: Plan: History of dementia Does not have any acute delirium (3) Hypertension: Plan: Blood pressure remains controlled (4) History of abdominal aortic aneurysm: Plan: CT of the abdomen did show a mild fusiform aneurysm of the distal abdominal aorta measuring up to 3 cm DVT prophylaxis Subcu heparin CODE STATUS Full Admission and Anticipated Discharge Date Admission Date: September 21, 2022 Subjective 10/02/2022 The patient was seen and examined in telemetry unit He has been feeling much better since admission but is still cannot move right upper extremity and to some extent right lower extremity No facial asymmetry Denies any other significant symptoms Review of Systems Review of Systems: Unobtainable due to cognitive status Physical Exam Physical Exam: Lying in bed comfortably Constitutional: + ill appearing and average body habitus Eyes: PERRL, conjunctivae normal, anicteric sclerae ENMT: external ear and nose normal, oropharynx normal Neck: trachea midline, no thyromegaly Respiratory: no respiratory distress Auscultation: lungs clear to auscultation bilaterally Cardiovascular: Rate/Rhythm: regular rate and regular rhythm; not tachycardic Heart Sounds: normal S1, normal S2 and + murmur Extremities: no edema Gastrointestinal (Abdomen): Inspection/Auscultation: normal bowel sounds; abdomen not distended Percussion/Palpation: abdomen soft; abdomen nontender Musculoskeletal: No acute arthritis involving any joint Neurologic: Alert and awake. No facial asymmetry. Has right-sided hemiplegia upper extremity more than the lower extremity Lymphatic: no cervical or axillary lymphadenopathy Results & Data Results & Data Vital Signs (Past 12 Hours) Vital Signs Temp Pulse Pulse Resp BP Pulse Ox O2 Del Method 09/22/22 15:17 37.0 C 78 16 144/86 H 92 Room Air 09/22/22 10:55 36.3 C L 84 18 129/74 94 Room Air 09/22/22 08:00 88 09/22/22 07:15 36.8 C 85 18 118/82 95 Room Air Laboratory Results Short CBC 09/22/22 Range/Units 07:40 WBC 8.42 (4.8-10.8) K/ul Hgb 12.2 L (14.0-18.0) g/dl Hct 36.1 L (42.0-52.0) % Plt Count 224 (130-400) K/uL BMP 09/22/22 07:40 Sodium 139 Potassium 3.7 Chloride 104 Carbon Dioxide 29 BUN 20 Creatinine 0.58 L Glucose 89 Calcium 8.6 Liver Function 09/22/22 Range/Units 07:40 Total Bilirubin 0.8 (0.2-1.0) mg/dl Direct Bilirubin 0.2 (0-0.2) mg/dl AST 26 (13-39) U/L ALT 43 (7-52) U/L Alkaline Phosphatase 90 (34-104) U/L Albumin 3.4 (3.4-5.0) gm/dl Urine 09/21/22 Range/Units 17:23 Urine Color Yellow Urine Appearance Clear (Clear) Urine pH 6.5 (4.5-7.5) Ur Specific [employer] > 1.045 H (1.000-1.030) Urine Protein Trace H (Negative) Urine Glucose (UA) Negative (Negative) Medications Administered Current Inpatient Medications Aspirin (Aspirin 81 Mg Ectab) 81 mg PO DAILY ROSALINDA Stop: 10/23/22 11:59 Atorvastatin Calcium (Atorvastatin 40 Mg Tab) 40 mg PO DAILY ROSALINDA Stop: 10/22/22 15:14 Clopidogrel Bisulfate (Clopidogrel Bisulfate 75 Mg Tab) 75 mg PO DAILY ROSALINDA Stop: 10/23/22 11:59 Sodium Chloride (Nss 1000ml) 1,000 mls @ 80 mls/hr IV .[id number] ROSALINDA Stop: 10/21/22 22:15 Last Admin: 09/22/22 13:05 Dose: 80 mls/hr Labetalol HCl (Labetalol Hcl Iv 5 Mg/Ml 20ml) 10 mg IV Q4H PRN PRN Reason: Hypertension Stop: 10/21/22 22:15 Miscellaneous Information (Pharmacist Discharge Med Rec Consult) 1 each N/A UD PRN PRN Reason: Consult Stop: 10/21/22 22:15 Nitroglycerin (Nitroglycerin Sl 0.4 Mg/Tab Tab) 0.4 mg SL Q5M PRN PRN Reason: Chest Pain Stop: 10/21/22 22:15 Ondansetron HCl (Ondansetron Inj 2 Mg/Ml 2 Ml Vial) 4 mg IV Q6H PRN PRN Reason: Nausea Stop: 10/21/22 22:15
[2022-09-22] MEDS: ATORVASTATIN 40 MG TAB PO SCH (17:36)
[2022-09-22] MEDS: HEPARIN SOD 5,000 UNIT/0.5 ML VIAL SQ SCH (20:32)
[2022-09-23] MEDS: SODIUM CHLORIDE 0.9% 1000ML 1,000 ML IV SCH (00:23)
[2022-09-23] MEDS: HEPARIN SOD 5,000 UNIT/0.5 ML VIAL SQ SCH ×2 (07:57→20:54)
[2022-09-23] MEDS: ATORVASTATIN 40 MG TAB PO SCH (07:57)
[2022-09-23 08:18] LABS: Basophils # (auto) 0.02 K/uL (0-0.2); Basophils % (auto) 0.3 %; Eosinophils # (auto) 0.15 K/uL (0-0.50); Eosinophils % (auto) 2.4 %; Hemoglobin 11.7 g/dl (14.0-18.0); Immature Granulocytes # (auto) 0.03 K/uL (0.01-0.20); Immature Granulocytes % (auto) 0.5 %; Lymphocytes # (auto) 1.02 K/uL (1.2-3.4); Lymphocytes % (auto) 16.3 %; Mean Corpuscular Hgb Conc 33.4 g/dL (32.0-36.0); Mean Corpuscular Volume 89.7 fL (80.0-100.0); Mean Platelet Volume 11.1 fL (9.4-12.4); Monocytes % (auto) 12.8 %; Neutrophils # (auto) 4.25 K/uL (1.40-6.50); Neutrophils % (auto) 67.7 %; Platelet Count 218 K/uL (130-400); RDW Coefficient of Variation 12.1 % (11.5-14.5); RDW Standard Deviation 39.3 fL (36.4-46.3); White Blood Count 6.27 K/ul (4.8-10.8)
[2022-09-23 08:40] LABS: BUN Creatinine Ratio 31.4 (10-20); Calcium 8.4 mg/dl (8.6-10.3); Creatinine Clr Calc Pharmacy 114.5 ml/min; Est GFR (African American) 119.3 ml/min; Potassium 3.6 mmol/L (3.5-5.1)
--- NOTE | 2022-09-23 08:57 | Pharmacy Report ---
- Date of Service September 23, 2022 - Pharmacy CVA/TIA Medication Review Medications to Prevent Stroke handout has been added to the patients discharge packet. Antiplatelet(s) * Aspirin 81 mg PO daily + Clopidogrel 75 mg PO daily (x21 days), then monotherapy Cholesterol * High intensity statin: atorvastatin 40 mg daily DVT Prophylaxis * Heparin SQ Therapeutic Anticoagulation * No history of Afib/Aflutter noted Type 2 Diabetes * Patient does not have T2DM
[2022-09-23] MEDS: ASPIRIN 81 MG ECTAB PO SCH (12:39)
[2022-09-23] MEDS: CLOPIDOGREL BISULFATE 75 MG TAB PO SCH (12:39)
--- NOTE | 2022-09-23 16:57 | Hospitalist Progress Note ---
Date of Service September 23, 2022 Assessment & Plan (1) Ischemic stroke: Plan: Acute CVA Left MCA aneurysm --Brain MRI:Restricted diffusion in the left rosalia is compatible with acute infarct. No hemorrhage is seen. Additional chronic findings as above. --Head/Neck CTA:No occlusion, hemodynamically significant stenosis, or dissection in the major cervical arteries. 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 --ECHO: Left ventricle is hyperdynamic. EF greater than 70%. Borderline concentric LVH. Aortic valve sclerosis mild, without significant aortic valvular stenosis. Trace tricuspid regurgitation. No interatrial shunt on injection of contrast. -- LDL 121 --Appreciate neurology input --Continue dual antiplatelet therapy for 21 days -- Continue Lipitor Needs follow-up with neurology upon discharge Continue PT OT, fall precautions (2) Dementia: Plan: H/O dementia Reorient frequently to minimize delirium (3) Hypertension: Plan: Blood pressure stable (4) History of abdominal aortic aneurysm: Plan: CT of the abdomen did show a mild fusiform aneurysm of the distal abdominal aorta measuring up to 3 cm Follow-up as outpatient DVT prophylaxis SQ heparin CODE STATUS Full Code Admission and Anticipated Discharge Date Admission Date: September 21, 2022 Subjective Patient is seen and examined at bedside States having right upper extremity numbness and persistent right-sided weakness Offers no other complaints Present guards at bedside Review of Systems Review of Systems: All systems reviewed & are unremarkable except as noted in Subjective Physical Exam Physical Exam: Physical Exam: Vitals signs as noted above General Appearance: Thin, frail, ill-appearing, no apparent distress Head: normocephalic, Atraumatic Eyes: normal inspection, EOMI Neck: supple, Trachea midline Respiratory/Chest: Normal breath sounds, CTA, No accessory muscle use Cardiovascular: S1, S2, +murmur Abdomen/GI:Soft, Non tender, Bowel sounds present Extremities/Musculoskeletal:normal inspection, no edema Neurologic/Psych:AAOX2, right sided hemiplegia Skin: normal color, warm Results & Data Results & Data Vital Signs (Past 12 Hours) Vital Signs Temp Pulse Resp BP Pulse Ox O2 Del Method 09/23/22 12:13 36.3 C L 74 20 109/72 95 Room Air 09/23/22 08:00 36.5 C 83 18 136/87 96 09/23/22 07:52 36.5 C 83 18 136/87 96 Room Air Laboratory Results Short CBC 09/23/22 Range/Units 07:36 WBC 6.27 (4.8-10.8) K/ul Hgb 11.7 L (14.0-18.0) g/dl Hct 35.0 L (42.0-52.0) % Plt Count 218 (130-400) K/uL BMP 09/23/22 07:36 Sodium 138 Potassium 3.6 Chloride 106 Carbon Dioxide 26 BUN 16 Creatinine 0.51 L Glucose 79 Calcium 8.4 L
[2022-09-24 06:36] LABS: Basophils # (auto) 0.02 K/uL (0-0.2); Basophils % (auto) 0.3 %; Eosinophils # (auto) 0.06 K/uL (0-0.50); Eosinophils % (auto) 0.8 %; Hematocrit (blood only) 34.1 % (42.0-52.0); Hemoglobin 11.7 g/dl (14.0-18.0); Immature Granulocytes # (auto) 0.03 K/uL (0.01-0.20); Immature Granulocytes % (auto) 0.4 %; Lymphocytes # (auto) 0.56 K/uL (1.2-3.4); Lymphocytes % (auto) 7.5 %; Mean Corpuscular Hemoglobin 29.6 pg (25.0-34.0); Mean Corpuscular Hgb Conc 34.3 g/dL (32.0-36.0); Mean Corpuscular Volume 86.3 fL (80.0-100.0); Mean Platelet Volume 10.8 fL (9.4-12.4); Monocytes # (auto) 0.77 K/uL (0.11-0.59); Monocytes % (auto) 10.3 %; Neutrophils # (auto) 6.01 K/uL (1.40-6.50); Neutrophils % (auto) 80.7 %; Platelet Count 240 K/uL (130-400); RDW Standard Deviation 38.5 fL (36.4-46.3); Red Blood Count 3.95 M/uL (4.70-6.10); White Blood Count 7.45 K/ul (4.8-10.8)
[2022-09-24 07:12] LABS: Calcium 8.6 mg/dl (8.6-10.3); Potassium 3.3 mmol/L (3.5-5.1)
[2022-09-24 07:18] LABS: BUN Creatinine Ratio 36.7 (10-20); Creatinine Clr Calc Pharmacy 97.6 ml/min; Est GFR (African American) 111.6 ml/min; Est GFR (Non-African American) 96.3 ml/min
[2022-09-24] MEDS: ASPIRIN 81 MG ECTAB PO SCH (07:49)
[2022-09-24] MEDS: ATORVASTATIN 40 MG TAB PO SCH (07:49)
[2022-09-24] MEDS: HEPARIN SOD 5,000 UNIT/0.5 ML VIAL SQ SCH ×2 (07:50→20:48)
[2022-09-24] MEDS: CLOPIDOGREL BISULFATE 75 MG TAB PO SCH (07:50)
--- NOTE | 2022-09-24 10:04 | Neurology Progress Note ---
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 overall clinically stable from stroke stand point. pt however is not drinking or eating much at all. his poor nutritional status with dehydration and baseline dementia likely causing his fluctuating confusion. not clear about bradycardia VS this morning with HR 19. Recommendations: -closely follow the heart rate and vitals for his recording of bradycardia at 19 this morning. -overall he is very malnourished. recommend nutritional consult and aggressive hydration and food intake. will need veterinary hospital attendant care planning for feeding and advance directives. not much to add from neurology. call again if new question. Dr. Som Bradley MD [facility] Neurology Subjective: Patient Seen and Examined. The notes from the last 24 hours were reviewed.pt alert and follows command. moving left side well as before. same rt hemiparesis. Review of Systems: Per HPI and prior note. Physical Exam: Neuro: Level of consciousness:Alert easily and follows simple commands. pt with baseline dementia. Cranial Nerves:face symmetric, PERRL, tongue midline, hearing intact, Strength:rt hemiparesis with 3+/5 t/o leg, 3/5 rt arm t/o Sensation to light touch: Intact bilaterally, response to pain b/l Meds: See chart I personally reviewed all of the medications Chart reviewed Total time spent: 50 minutes (this includes chart review); more than 50% time spent in counseling or coordination of care. Admission and Anticipated Discharge Date Admission Date: September 21, 2022 Results & Data Vital Signs (Past 12 Hours) Vital Signs Temp Pulse Pulse Resp BP Pulse Ox Pulse Ox 09/24/22 08:00 36.6 C 19 L 18 135/79 96 09/24/22 02:56 36.6 C 84 19 129/80 94 09/23/22 22:30 87 09/23/22 22:53 36.8 C 95 H 18 150/88 H 95 09/23/22 22:00 96 O2 Del Method O2 Del Method 09/24/22 08:00 Room Air 09/24/22 02:56 Room Air 09/23/22 22:30 09/23/22 22:53 Room Air 09/23/22 22:00 Room Air
[2022-09-24] MEDS ORDERED: NSS + 20MEQ KCL 20 MEQ/1,000 ML BAG IV ONE (11:00)
[2022-09-24] MEDS: POTASSIUM CHLORIDE / WTR 10 MEQ/100 ML PLCT IV SCH ×2 (11:15→12:03)
--- NOTE | 2022-09-24 13:39 | Magnetic Resonance Report ---
MR brain wo con HISTORY: 76 years-old Male CVA, Change in mental status acutely altered mental status COMPARISON: Brain MRI 09/22/2022, head CT 09/18/2022 TECHNIQUE: Multiplanar multisequence MRI of the brain was obtained without the use of IV contrast FINDINGS: 1.7 x 1.1 cm focus of increased diffusion-weighted signal within the left midbrain is again noted wit h intermediate signal on ADC map and increased T2/FLAIR signal. No pontine infarcts are present. This areas stable in size from the prior study and demonstrates unchanged amount of associated cytotoxic edema. No additional acute or subacute infarct. No pathologic blooming artifact. Area of peripheral i ncreased T1 signal within the left lentiform nucleus on image 15 series 7 measuring 1.2 x 1.0 cm is u nchanged. Surrounding encephalomalacia and gliosis suggestive of prior infarct. Encephalomalacia with advanced chronic microvascular ischemic disease. No new areas of acute intracranial hemorrhage, midl ine shift, abnormal extra axial collection, hydrocephalus or intracranial mass. Numerous chronic lacu jessica infarcts of the basal ganglia and villa radiata. Cerebral venous sinuses and major arterial flow voids appear patent. Trace mastoid effusions. Mild mu cosal thickening of the paranasal sinuses. The skull, orbits and soft tissues are unremarkable. IMPRESSION: 1. 1.7 cm subacute appearing infarct within the left midbrain (likely 1-2 weeks old) is stable in siz e from the 09/22/2022 exam with unchanged associated cytotoxic edema. 2. Involutional changes with advanced chronic microvascular ischemic disease. 3. Unchanged 1.2 cm focus of increased T1 signal within the left lentiform nucleus favoring laminar n ecrosis from a subacute infarct. 4. Numerous chronic lacunar infarcts of the basal ganglia and villa radiata. ACT 112: Negative or not required by law. The above report was generated using voice recognition software. It may contain grammatical, syntax o r spelling errors. Electronically signed by: Laci Barnett M.D. 09/24/2022 1:38 PM
--- NOTE | 2022-09-24 15:57 | Hospitalist Progress Note ---
Date of Service September 24, 2022 Assessment & Plan (1) Ischemic stroke: Plan: Acute CVA Left MCA aneurysm --Brain MRI:Restricted diffusion in the left rosalia is compatible with acute infarct. No hemorrhage is seen. Additional chronic findings as above. --Head/Neck CTA:No occlusion, hemodynamically significant stenosis, or dissection in the major cervical arteries. 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 --ECHO: Left ventricle is hyperdynamic. EF greater than 70%. Borderline concentric LVH. Aortic valve sclerosis mild, without significant aortic valvular stenosis. Trace tricuspid regurgitation. No interatrial shunt on injection of contrast. -- LDL 121 --Repeat MRI:1.7 cm subacute appearing infarct within the left midbrain (likely 1-2 weeks old) is stable in size from the 09/22/2022 exam with unchanged associated cytotoxic edema. Involutional changes with advanced chronic microvascular ischemic disease. Unchanged 1.2 cm focus of increased T1 signal within the left lentiform nucleus favoring laminar necrosis from a subacute infarct. Numerous chronic lacunar infarcts of the basal ganglia and villa radiata. --Appreciate neurology input --Continue dual antiplatelet therapy for 21 days -- Continue Lipitor Needs follow-up with neurology upon discharge Continue PT OT, fall precautions Continue speech therapy Will benefit from rehab placement (2) Dementia: Plan: H/O dementia Reorient frequently to minimize delirium (3) Hypertension: Plan: Blood pressure stable (4) History of abdominal aortic aneurysm: Plan: CT of the abdomen did show a mild fusiform aneurysm of the distal abdominal aorta measuring up to 3 cm Follow-up as outpatient DVT prophylaxis SQ heparin CODE STATUS Full Code Admission and Anticipated Discharge Date Admission Date: September 21, 2022 Subjective Patient is seen and examined at bedside RN change in mental status this morning, patient initially refused medications Very poor historian Persistent right-sided weakness Present guards at bedside Discussed with neurology today MRI brain unchanged Review of Systems Review of Systems: Other Physical Exam Physical Exam: Physical Exam: Vitals signs as noted above General Appearance: Thin, frail, ill-appearing, no apparent distress Head: normocephalic, Atraumatic Eyes: normal inspection, EOMI Neck: supple, Trachea midline Respiratory/Chest: Normal breath sounds, CTA, No accessory muscle use Cardiovascular: S1, S2, +murmur Abdomen/GI:Soft, Non tender, Bowel sounds present Extremities/Musculoskeletal:normal inspection, no edema Neurologic/Psych:AAOX2, right sided hemiplegia Skin: normal color, warm Results & Data Results & Data Vital Signs (Past 12 Hours) Vital Signs Temp Pulse Resp BP Pulse Ox O2 Del Method 09/24/22 12:04 36.7 C 66 18 123/74 96 Room Air 09/24/22 08:00 36.6 C 70 18 135/79 96 Room Air Laboratory Results Short CBC 09/24/22 Range/Units 06:13 WBC 7.45 (4.8-10.8) K/ul Hgb 11.7 L (14.0-18.0) g/dl Hct 34.1 L (42.0-52.0) % Plt Count 240 (130-400) K/uL BMP 09/24/22 06:13 Sodium 138 Potassium 3.3 L Chloride 104 Carbon Dioxide 25 BUN 22 Creatinine 0.60 Glucose 93 Calcium 8.6
[2022-09-25 06:40] LABS: Hematocrit (blood only) 33.2 % (42.0-52.0); Hemoglobin 11.2 g/dl (14.0-18.0); Mean Corpuscular Hemoglobin 29.9 pg (25.0-34.0); Mean Corpuscular Hgb Conc 33.7 g/dL (32.0-36.0); Mean Corpuscular Volume 88.5 fL (80.0-100.0); Mean Platelet Volume 10.8 fL (9.4-12.4); Platelet Count 245 K/uL (130-400); RDW Coefficient of Variation 12.1 % (11.5-14.5); RDW Standard Deviation 38.7 fL (36.4-46.3); Red Blood Count 3.75 M/uL (4.70-6.10); White Blood Count 6.52 K/ul (4.8-10.8)
[2022-09-25] MEDS: CLOPIDOGREL BISULFATE 75 MG TAB PO SCH (09:43)
[2022-09-25] MEDS: HEPARIN SOD 5,000 UNIT/0.5 ML VIAL SQ SCH ×2 (09:43→20:54)
[2022-09-25] MEDS: ATORVASTATIN 40 MG TAB PO SCH (09:43)
[2022-09-25] MEDS: ASPIRIN 81 MG ECTAB PO SCH (09:43)
[2022-09-25 10:23] LABS: BUN Creatinine Ratio 38.9 (10-20); Calcium 8.4 mg/dl (8.6-10.3); Creatinine Clr Calc Pharmacy 108.9 ml/min; Est GFR (African American) 116.6 ml/min; Est GFR (Non-African American) 100.6 ml/min; Potassium 3.4 mmol/L (3.5-5.1)
[2022-09-25] MEDS: POTASSIUM CHLORIDE / WTR 10 MEQ/100 ML PLCT IV SCH ×2 (13:28→14:52)
[2022-09-25] MEDS ORDERED: NSS + 20MEQ KCL 20 MEQ/1,000 ML BAG IV ONE (14:00)
--- NOTE | 2022-09-25 18:57 | Hospitalist Progress Note ---
Date of Service September 25, 2022 Assessment & Plan (1) Ischemic stroke: Plan: Acute CVA Left MCA aneurysm --Brain MRI:Restricted diffusion in the left rosalia is compatible with acute infarct. No hemorrhage is seen. Additional chronic findings as above. --Head/Neck CTA:No occlusion, hemodynamically significant stenosis, or dissection in the major cervical arteries. 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 --ECHO: Left ventricle is hyperdynamic. EF greater than 70%. Borderline concentric LVH. Aortic valve sclerosis mild, without significant aortic valvular stenosis. Trace tricuspid regurgitation. No interatrial shunt on injection of contrast. -- LDL 121 --Repeat MRI:1.7 cm subacute appearing infarct within the left midbrain (likely 1-2 weeks old) is stable in size from the 09/22/2022 exam with unchanged associated cytotoxic edema. Involutional changes with advanced chronic microvascular ischemic disease. Unchanged 1.2 cm focus of increased T1 signal within the left lentiform nucleus favoring laminar necrosis from a subacute infarct. Numerous chronic lacunar infarcts of the basal ganglia and villa radiata. --Appreciate neurology input --Continue dual antiplatelet therapy for 21 days -- Continue Lipitor Needs follow-up with neurology upon discharge Continue PT OT, fall precautions Continue speech therapy Plan to discharge to rehab facility tomorrow (2) Dementia: Plan: H/O dementia Reorient frequently to minimize delirium (3) Hypertension: Plan: Blood pressure stable (4) History of abdominal aortic aneurysm: Plan: CT of the abdomen did show a mild fusiform aneurysm of the distal abdominal aorta measuring up to 3 cm Follow-up as outpatient DVT prophylaxis SQ heparin CODE STATUS Full Code Admission and Anticipated Discharge Date Admission Date: September 21, 2022 Subjective Patient is seen and examined at bedside More alert, awake today No new complaints Persistent right-sided weakness Present guards at bedside Plan for discharge to rehab facility tomorrow Review of Systems Review of Systems: All systems reviewed & are unremarkable except as noted in Subjective Physical Exam Physical Exam: Physical Exam: Vitals signs as noted above General Appearance: Thin, frail, ill-appearing, no apparent distress Head: normocephalic, Atraumatic Eyes: normal inspection, EOMI Neck: supple, Trachea midline Respiratory/Chest: Normal breath sounds, CTA, No accessory muscle use Cardiovascular: S1, S2, +murmur Abdomen/GI:Soft, Non tender, Bowel sounds present Extremities/Musculoskeletal:normal inspection, no edema Neurologic/Psych:AAOX2, right sided hemiplegia Skin: normal color, warm Results & Data Results & Data Vital Signs (Past 12 Hours) Vital Signs Temp Pulse Pulse Resp BP BP Pulse Ox 09/25/22 15:00 37.5 C 78 16 115/71 98 09/25/22 15:25 37.3 C 77 18 102/73 96 09/25/22 13:52 76 09/25/22 11:00 37.2 C 77 18 135/84 96 09/25/22 07:14 37.0 C 73 17 124/70 93 O2 Del Method 09/25/22 15:00 Room Air 09/25/22 15:25 Room Air 09/25/22 13:52 09/25/22 11:00 Room Air 09/25/22 07:14 Room Air Laboratory Results Short CBC 09/25/22 Range/Units 06:22 WBC 6.52 (4.8-10.8) K/ul Hgb 11.2 L (14.0-18.0) g/dl Hct 33.2 L (42.0-52.0) % Plt Count 245 (130-400) K/uL BMP 09/25/22 08:59 Sodium 139 Potassium 3.4 L Chloride 106 Carbon Dioxide 26 BUN 21 Creatinine 0.54 L Glucose 65 L Calcium 8.4 L
[2022-09-26] MEDS: ATORVASTATIN 40 MG TAB PO SCH (08:14)
[2022-09-26] MEDS: HEPARIN SOD 5,000 UNIT/0.5 ML VIAL SQ SCH (08:14)
[2022-09-26] MEDS: CLOPIDOGREL BISULFATE 75 MG TAB PO SCH (08:14)
[2022-09-26] MEDS: ASPIRIN 81 MG ECTAB PO SCH (08:15)
[2022-09-26 08:55] LABS: BUN Creatinine Ratio 27.3 (10-20); Calcium 8.6 mg/dl (8.6-10.3); Creatinine Clr Calc Pharmacy 106.8 ml/min; Est GFR (African American) 115.7 ml/min; Est GFR (Non-African American) 99.8 ml/min; Magnesium 1.9 mg/dl (1.7-2.4); Potassium 3.5 mmol/L (3.5-5.1)
[2022-09-26] MEDS ORDERED: amLODIPine BESYLATE 5 MG TAB PO SCH (09:00)
[2022-09-26] MEDS ORDERED: CYANOCOBALAMIN (B-12) 500 MCG TABLET PO SCH (09:00)
[2022-09-26] MEDS ORDERED: DONEPEZIL HCL 5 MG TAB PO SCH (09:00)
--- NOTE | 2022-09-26 10:51 | Hospitalist Progress Note ---
Date of Service September 26, 2022 Assessment & Plan (1) Ischemic stroke: Plan: Acute CVA Left MCA aneurysm --Brain MRI:Restricted diffusion in the left rosalia is compatible with acute infarct. No hemorrhage is seen. Additional chronic findings as above. --Head/Neck CTA:No occlusion, hemodynamically significant stenosis, or dissection in the major cervical arteries. 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 --ECHO: Left ventricle is hyperdynamic. EF greater than 70%. Borderline concentric LVH. Aortic valve sclerosis mild, without significant aortic valvular stenosis. Trace tricuspid regurgitation. No interatrial shunt on injection of contrast. -- LDL 121 --Repeat MRI:1.7 cm subacute appearing infarct within the left midbrain (likely 1-2 weeks old) is stable in size from the 09/22/2022 exam with unchanged associated cytotoxic edema. Involutional changes with advanced chronic microvascular ischemic disease. Unchanged 1.2 cm focus of increased T1 signal within the left lentiform nucleus favoring laminar necrosis from a subacute infarct. Numerous chronic lacunar infarcts of the basal ganglia and villa radiata. --Appreciate neurology input --Continue dual antiplatelet therapy for 21 days -- Continue Lipitor Needs follow-up with neurology upon discharge Continue PT OT, fall precautions Continue speech therapy Plan to discharge to rehab facility when transportation arranged (2) Dementia: Plan: H/O dementia Reorient frequently to minimize delirium (3) Hypertension: Plan: Blood pressure stable (4) History of abdominal aortic aneurysm: Plan: CT of the abdomen did show a mild fusiform aneurysm of the distal abdominal aorta measuring up to 3 cm Follow-up as outpatient DVT prophylaxis SQ heparin CODE STATUS Full Code Disposition Rehab Admission and Anticipated Discharge Date Admission Date: September 21, 2022 Subjective Patient is seen and examined at bedside No significant change from yesterday Reports right-sided weakness Reports no new focal weakness Denies any chest pain, dyspnea, dizziness, nausea, abdominal pain Plan to discharge to rehab facility when accepted Review of Systems Review of Systems: All systems reviewed & are unremarkable except as noted in Subjective Physical Exam Physical Exam: Physical Exam: Vitals signs as noted above General Appearance: Thin, frail, ill-appearing, no apparent distress Head: normocephalic, Atraumatic Eyes: normal inspection, EOMI Neck: supple, Trachea midline Respiratory/Chest: Normal breath sounds, CTA, No accessory muscle use Cardiovascular: S1, S2, +murmur Abdomen/GI:Soft, Non tender, Bowel sounds present Extremities/Musculoskeletal:normal inspection, no edema Neurologic/Psych:AAOX2, right sided hemiplegia Skin: normal color, warm Results & Data Results & Data Vital Signs (Past 12 Hours) Vital Signs Temp Pulse Pulse Resp BP Pulse Ox O2 Del Method 09/26/22 09:02 73 09/26/22 07:51 36.8 C 93 H 17 152/91 H 93 Room Air 09/26/22 02:47 36.6 C 77 18 145/70 H 92 Room Air Laboratory Results [facility] 09/26/22 08:07 Sodium 139 Potassium 3.5 Chloride 105 Carbon Dioxide 25 BUN 15 Creatinine 0.55 L Glucose 80 Calcium 8.6
[2022-09-26] MEDS ORDERED: STROKE PATIENT DISCHARGE STA (11:11)
--- NOTE | 2022-09-26 13:41 | Discharge Summary ---
Date of Service September 26, 2022 Admission HPI Per Admitting Provider CHIEF COMPLAINT: Lightheaded, weakness. HISTORY OF PRESENT ILLNESS: A 76-year-old male with history of severe dementia, coming from [facility] with stroke-like symptoms. The patient recently came to [facility] and we don't know whether he can ambulate or not, but it looks like yesterday morning he was ok and today morning, he was having weakness in the right side. He was not moving his right upper and lower extremity,. As per guards while in CAT scan, he was able to lift his right leg, but now again he is not lifting the right leg.He is able to lift left extremities on command. He is currently can tell his name, knows he is in the hospital, but could not tell his date of , could not tell the current date. The patient denies any headache. Speech is somewhat low volume, but okay.Possible right facial droop Denies any chest pain. Denies any neck pain. Denies any back pain. Denies abdominal pain, denies nausea or vomiting. Denies cough. Afebrile.Somewhat poor historian. Admission Exam Per Admitting Provider PHYSICAL EXAMINATION: GENERAL: The patient is alert and awake, oriented to name and place only. VITAL SIGNS: Temperature, T-max 37.8, pulse 102, respiratory rate 18, blood pressure 147/89, oxygen 95% on room air. HEENT: Pupils equal, round and reactive to light. Oral mucosa moist. NECK: No JVD or neck masses. CARDIOVASCULAR: S1 and S2 heard. Regular rate and rhythm. No murmur, no gallop. RESPIRATORY SYSTEM: Normal AP diameter. No accessory muscle use. No wheezing, no crackles. ABDOMEN: Soft, bowel sounds present, nontender, no distention. CENTRAL NERVOUS SYSTEM: Alert and awake, oriented to name and place. Possible questionable right facial droop and decreased tongue out. There is no deviation of tongue seen. Obeying simple commands. Not able to move his right extremities on command. Right upper extremity drops down on passive lifting Could not complete APPLICATION DESIGNER exam because the patient has severe dementia. EXTREMITIES: No edema, no erythema. Principal Diagnosis Acute CVA Left MCA aneurysm Dementia H/O abdominal aortic aneurysm Discharge Data Allergies Allergy/AdvReac Type Severity Reaction Status Date / Time No Known Allergies Allergy Verified 09/21/22 17:57 Consultations 09/21/22 19:21 ED Decision to Admit Stat 09/22/22 08:00 Consult Neurology Routine Procedures Performed Laboratory Results WBC 6.52 K/ul (4.8-10.8) 09/25/22 06:22 RBC 3.75 M/uL (4.70-6.10) L 09/25/22 06:22 Hgb 11.2 g/dl (14.0-18.0) L 09/25/22 06:22 POC Hgb 14.6 g/dl (14.0-18.0) 09/21/22 14:31 Hct 33.2 % (42.0-52.0) L 09/25/22 06:22 POC Hct 43 % (42-52) 09/21/22 14:31 MCV 88.5 fL (80.0-100.0) 09/25/22 06:22 MCH 29.9 pg (25.0-34.0) 09/25/22 06:22 MCHC 33.7 g/dL (32.0-36.0) 09/25/22 06:22 RDW Std Deviation 38.7 fL (36.4-46.3) 09/25/22 06:22 RDW Coeff of Jeannine 12.1 % (11.5-14.5) 09/25/22 06:22 Plt Count 245 K/uL (130-400) 09/25/22 06:22 MPV 10.8 fL (9.4-12.4) 09/25/22 06:22 Immature Gran % (Auto) 0.4 % 09/24/22 06:13 Neut % (Auto) 80.7 % 09/24/22 06:13 Lymph % (Auto) 7.5 % 09/24/22 06:13 [place] % (Auto) 10.3 % 09/24/22 06:13 Eos % (Auto) 0.8 % 09/24/22 06:13 Baso % (Auto) 0.3 % 09/24/22 06:13 Neut # (Auto) 6.01 K/uL (1.40-6.50) 09/24/22 06:13 Lymph # (Auto) 0.56 K/uL (1.2-3.4) L 09/24/22 06:13 [place] # (Auto) 0.77 K/uL (0.11-0.59) H 09/24/22 06:13 Eos # (Auto) 0.06 K/uL (0-0.50) 09/24/22 06:13 Baso # (Auto) 0.02 K/uL (0-0.2) 09/24/22 06:13 Immature Gran # (Auto) 0.03 K/uL (0.01-0.20) 09/24/22 06:13 ESR 60 mm/hr (0-20) H 09/21/22 14:00 PT 11.2 Seconds (9.0-12.0) 09/21/22 14:00 INR 1.1 (0.9-1.1) 09/21/22 14:00 APTT 27.0 Seconds (21.0-31.0) 09/21/22 14:00 PTT Ratio 1.0 09/21/22 14:00 POC Sodium 138 mmol/L (135-144) 09/21/22 14:31 Sodium 139 mmol/L (136-145) 09/26/22 08:07 POC Potassium 3.9 mmol/L (3.3-5.0) 09/21/22 14:31 Potassium 3.5 mmol/L (3.5-5.1) 09/26/22 08:07 POC Chloride 99 mmol/L (101-112) L 09/21/22 14:31 Chloride 105 mmol/L (98-107) 09/26/22 08:07 Carbon Dioxide 25 mmol/L (21-32) 09/26/22 08:07 POC Total CO2 27 mmol/L (24-31) 09/21/22 14:31 Anion Gap 9 (3-11) 09/26/22 08:07 POC Anion Gap 16.0 mmol/L (16-25) 09/21/22 14:31 POC BUN 24 mg/dl (7-18) H 09/21/22 14:31 BUN 15 mg/dl (6-23) 09/26/22 08:07 Creatinine 0.55 mg/dl (0.6-1.4) L 09/26/22 08:07 POC Creatinine 0.7 mg/dl (0.6-1.3) 09/21/22 14:31 Est Cr Clr Drug Dosing 106.8 ml/min 09/26/22 08:07 Est GFR ( Amer) 115.7 ml/min 09/26/22 08:07 Est GFR (Non-Af Amer) 99.8 ml/min 09/26/22 08:07 BUN/Creatinine Ratio 27.3 (10-20) H 09/26/22 08:07 Glucose 80 mg/dl (70-99(Fasting)) 09/26/22 08:07 POC Glucose (other) 120 mg/dl (70-99) H 09/21/22 14:31 Estimat Average Glucose 108 mg/dl 09/22/22 07:40 Hemoglobin A1c 5.4 % (4.5-5.6) 09/22/22 07:40 Calcium 8.6 mg/dl (8.6-10.3) 09/26/22 08:07 POC Ioniz Calcium Christelle 1.05 mmol/l (1.12-1.32) L 09/21/22 14:31 Magnesium 1.9 mg/dl (1.7-2.4) 09/26/22 08:07 Total Bilirubin 0.8 mg/dl (0.2-1.0) 09/22/22 07:40 Direct Bilirubin 0.2 mg/dl (0-0.2) 09/22/22 07:40 AST 26 U/L (13-39) 09/22/22 07:40 ALT 43 U/L (7-52) 09/22/22 07:40 Alkaline Phosphatase 90 U/L (34-104) 09/22/22 07:40 Troponin I High Sens 14.0 pg/ml (0-20) 09/21/22 14:00 C-Reactive Protein 7.56 mg/dl (0-0.5) H 09/21/22 14:00 Total Protein 6.4 gm/dl (6.0-8.3) 09/22/22 07:40 Albumin 3.4 gm/dl (3.4-5.0) 09/22/22 07:40 Globulin 3.5 gm/dl (2.5-4.0) 09/21/22 14:00 Albumin/Globulin Ratio 1.1 (0.9-2) 09/21/22 14:00 Triglycerides 94 mg/dl (0-150) 09/22/22 07:40 Cholesterol 169 mg/dl (0-200) 09/22/22 07:40 LDL Cholesterol, Calc 121 mg/dl 09/22/22 07:40 VLDL Cholesterol, Calc 19 mg/dl (0-30) 09/22/22 07:40 HDL Cholesterol 29 mg/dl 09/22/22 07:40 Cholesterol/HDL Ratio 5.8 (0-5) H 09/22/22 07:40 Procalcitonin 0.06 ng/ml (0-0.5) 09/21/22 14:17 Urine Color Yellow 09/21/22 17: Urine Appearance Clear (Clear) 09/21/22 17: Urine pH 6.5 (4.5-7.5) 09/21/22: Ur Specific [place] > 1.045 (1.000-1.030) H 09/21/22 17: Urine Protein Trace (Negative) H 09/21/22: Urine Glucose (UA) Negative (Negative) 09/21/22: Urine Ketones 1+ (Negative) H 09/21/22 17: Urine Blood Negative (Negative) 09/21/22 17: Urine Nitrite Negative (Negative) 09/21/22: Urine Bilirubin Negative (Negative) 09/21/22: Urine Urobilinogen Negative (Negative) 09/21/22: Ur Leukocyte Esterase Negative (Negative) 09/21/22 17: Urine WBC (Auto) 1-5 /hpf (0-5) 09/21/22: Urine RBC (Auto) 0-4 /hpf (0-4) 09/21/22: U Hyaline Cast (Auto) 0 /lpf (0-5) 09/21/22: U Epithel Cells (Auto) 5-10 /lpf (0-5) H 09/21/22: Urine Bacteria (Auto) Negative (Negative) 09/21/22: Nasal Screen MRSA (PCR) Negative (Negative) 09/21/22 23:00 Urine Opiates Screen Neg (Neg) 09/21/22: Ur Methadone, Qual Neg (Neg) 09/21/22 17: Urine Barbiturates Neg (Neg) 09/21/22: Ur Phencyclidine (PCP) Neg (Neg) 09/21/22 17:23 U Amphetamin/Meth Scrn Neg (Neg) 09/21/22 17:23 MDMA (Ecstasy) Screen Neg (Neg) 09/21/22 17:23 U Benzodiazepines Scrn Neg (Neg) 09/21/22 17:23 Ur Cocaine Metabolite Neg (Neg) 09/21/22 17:23 U Marijuana (THC) Screen Neg (Neg) 09/21/22 17:23 SARS-CoV-2, RNA, NAAT NEGATIVE (NEGATIVE) 09/21/22 19:44 Impressions Chest X-Ray 09/21/22 13:42 XR chest 1V portable CLINICAL HISTORY: neuro deficit, acute stroke suspected TECHNIQUE: Single frontal radiograph of the chest was obtained. Comparison: Comparison is made to chest radiograph 09/18/2022 FINDINGS: No lines and tubes are seen. Calcified aortic knob is seen. Lungs are underinflated but clear. No evidence of pleural effusion or pneumothorax. IMPRESSION: Atelectasis is seen without evidence of acute abnormality. ACT 112: Negative or not required by law. Electronically signed by: Jose Jaeger M.D. 09/21/2022 3:[address] 09/21/22 13:42 CT OF THE HEAD WITHOUT CONTRAST CLINICAL HISTORY: neuro deficit, acute stroke suspected COMPARISON STUDY: Head CT September 21, 2022. TECHNIQUE: Helical axial images of the head were obtained without IV contrast. Automated exposure control was utilized for the study. A dose lowering technique was utilized adhering to the principles of ALARA. FINDINGS: No acute intracranial hemorrhage, midline shift or mass effect is present. White matter hypodensities are unchanged and suggest small vessel disease. Suspected old lacunar infarcts within the right internal capsule and caudate nucleus are noted. These are unchanged. The ventricular system is unremarkable. The basal cisterns are patent. No extra-axial collections are present. There are no findings to suggest acute dural sinus thrombosis or acute territorial infarct. No significant calvarial abnormalities are present. Visualized portions of the sinuses and mastoid air cells are clear. IMPRESSION: No acute intracranial findings. No change in appearance of the brain. ACT 112: Negative or not required by law. Electronically signed by: Rajiv King M.D. 09/21/2022 3:14 PM Head CTA 09/21/22 13:42 CT angio neck with con, CT angio head w con CLINICAL HISTORY: neuro deficit, acute stroke suspected TECHNIQUE: CT angiography of the head and neck was performed following intravenous administration of iodinated contrast. Coronal and sagittal MIPS were obtained from the axial data set and were submitted for review. Automated dose lowering techniques and/or adjustment according to patient size were utilized for this examination. All measurements were calculated based on NASCET criteria. Comparison: Comparison is made to CT head 09/21/[address] head 09/18/2022 FINDINGS: Lungs and soft tissues are unremarkable. CTA Neck: A 3 vessel aortic arch is shown. There is no significant atherosclerotic plaque in the aortic arch or the origins of the innominate, left common carotid, and left subclavian arteries. There is narrowing of the origin of the left vertebral artery which may not be hemodynamically significant. Atherosclerotic disease is seen in the bilateral carotid bulbs and carotid arteries The right vertebral artery is dominant. CTA Head: The anterior and posterior cerebral circulations are patent. 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 There is a 3 mm saccular aneurysm in the left MCA M1 segment. IMPRESSION: 1. No occlusion, hemodynamically significant stenosis, or dissection in the major cervical arteries. 2. 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 Assessment of stenosis of the internal carotid arteries is based on NASCET criteria. ACT 112: Negative or not required by law. Electronically signed by: Jose Jaeger M.D. 09/21/2022 3:21 PM Neck CTA 09/21/22 13:42 CT angio neck with con, CT angio head w con CLINICAL HISTORY: neuro deficit, acute stroke suspected TECHNIQUE: CT angiography of the head and neck was performed following intravenous administration of iodinated contrast. Coronal and sagittal MIPS were obtained from the axial data set and were submitted for review. Automated dose lowering techniques and/or adjustment according to patient size were utilized for this examination. All measurements were calculated based on NASCET criteria. Comparison: Comparison is made to CT head 09/21/[address] head 09/18/2022 FINDINGS: Lungs and soft tissues are unremarkable. CTA Neck: A 3 vessel aortic arch is shown. There is no significant atherosclerotic plaque in the aortic arch or the origins of the innominate, left common carotid, and left subclavian arteries. There is narrowing of the origin of the left vertebral artery which may not be hemodynamically significant. Atherosclerotic disease is seen in the bilateral carotid bulbs and carotid arteries The right vertebral artery is dominant. CTA Head: The anterior and posterior cerebral circulations are patent. 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 There is a 3 mm saccular aneurysm in the left MCA M1 segment. IMPRESSION: 1. No occlusion, hemodynamically significant stenosis, or dissection in the major cervical arteries. 2. 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 Assessment of stenosis of the internal carotid arteries is based on NASCET criteria. ACT 112: Negative or not required by law. Electronically signed by: Jose Jaeger M.D. 09/21/2022 3:21 PM Abdomen/Pelvis CT 09/21/22 14:[address] WITH IV CONTRAST CT DOSE: 1753.40 mGy.cm HISTORY: Acute hypotension hypotension TECHNIQUE: Multiaxial CT images of the abdomen and pelvis were performed following the IV administration of 109 cc of Optiray, A dose lowering technique was utilized adhering to the principles of ALARA. COMPARISON STUDY: None. FINDINGS: Study is limited secondary to upper extremity positioning. Extensive coronary artery calcifications. Pleural calcifications with dependent subsegmental bibasilar opacities favoring atelectasis. Mild left basilar predominant mucus plugging. There is no pneumatosis or pneumoperitoneum. Unremarkable spleen, pancreas, gallbladder and adrenal glands. 10 mm hypodense focus of the right hepatic lobe on image 18, likely a cyst. There is patency of the hepatic and portal veins. There is no hydronephrosis. Urinary bladder wall thickening with partial distention. Prostamegaly. Atherosclerosis of the abdominal aorta and branch vessels. Fusiform dilation of the distal abdominal aorta just proximal to the iliac bifurcation measures up to 3 cm. The right common iliac artery is dilated measuring up to 2.5 cm transversely. Fusiform aneurysm dilation of the left internal iliac artery measures up to 3.6 cm. No aneurysm rupture. No lymphadenopathy. Retroaortic left renal vein. No bowel obstruction or bowel wall thickening. Moderate colonic fecal retention. Normal appendix. Unremarkable soft tissues. No acute fracture. IMPRESSION: 1 no acute intra-abdominal or intrapelvic abnormality identified. 2. No bowel obstruction or bowel wall thickening. 3. Mild fusiform aneurysmal dilation of the distal abdominal aorta measuring up to 3 cm with additional aneurysmal dilation of the iliac arteries. No evidence of aneurysm rupture. 4. Additional findings as above. ACT 112: Negative or not required by law. The above report was generated using voice recognition software. It may contain grammatical, syntax or spelling errors. Electronically signed by: Laci Barnett M.D. 09/21/2022 3:25 PM Brain MRI 09/24/22 08:46 MR brain wo con HISTORY: 76 years-old Male CVA, Change in mental status acutely altered mental status COMPARISON: Brain MRI 09/22/2022, head CT 09/18/2022 TECHNIQUE: Multiplanar multisequence MRI of the brain was obtained without the use of IV contrast FINDINGS: 1.7 x 1.1 cm focus of increased diffusion-weighted signal within the left midbrain is again noted with intermediate signal on ADC map and increased T2/FLAIR signal. No pontine infarcts are present. This areas stable in size from the prior study and demonstrates unchanged amount of associated cytotoxic edema. No additional acute or subacute infarct. No pathologic blooming artifact. Area of peripheral increased T1 signal within the left lentiform nucleus on image 15 series 7 measuring 1.2 x 1.0 cm is unchanged. Surrounding encephalomalacia and gliosis suggestive of prior infarct. Encephalomalacia with advanced chronic microvascular ischemic disease. No new areas of acute intracranial hemorrhage, midline shift, abnormal extra axial collection, hydrocephalus or intracranial mass. Numerous chronic lacunar infarcts of the basal ganglia and villa radiata. Cerebral venous sinuses and major arterial flow voids appear patent. Trace mastoid effusions. Mild mucosal thickening of the paranasal sinuses. The skull, orbits and soft tissues are unremarkable. IMPRESSION: 1. 1.7 cm subacute appearing infarct within the left midbrain (likely 1-2 weeks old) is stable in size from the 09/22/2022 exam with unchanged associated cytotoxic edema. 2. Involutional changes with advanced chronic microvascular ischemic disease. 3. Unchanged 1.2 cm focus of increased T1 signal within the left lentiform nucleus favoring laminar necrosis from a subacute infarct. 4. Numerous chronic lacunar infarcts of the basal ganglia and villa radiata. ACT 112: Negative or not required by law. The above report was generated using voice recognition software. It may contain grammatical, syntax or spelling errors. Electronically signed by: Laci Barnett M.D. 09/24/2022 1:38 PM Ordered Studies 09/21/22 13:42 CT angio head w con Stat CT angio neck with con Stat CT head/brain wo con Stat 09/21/22 14:00 CT abd pelvis IV con only Stat 09/22/22 00:00 MR brain wo/w con Urgent 09/24/22 08:46 MRI Brain [MR brain wo con] Urgent Hospital Course (1) Ischemic stroke: Acute CVA Left MCA aneurysm --Brain MRI:Restricted diffusion in the left rosalia is compatible with acute infarct. No hemorrhage is seen. Additional chronic findings as above. --Head/Neck CTA:No occlusion, hemodynamically significant stenosis, or dissection in the major cervical arteries. 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 --ECHO: Left ventricle is hyperdynamic. EF greater than 70%. Borderline concentric LVH. Aortic valve sclerosis mild, without significant aortic valvular stenosis. Trace tricuspid regurgitation. No interatrial shunt on injection of contrast. -- LDL 121 --Repeat MRI:1.7 cm subacute appearing infarct within the left midbrain (likely 1-2 weeks old) is stable in size from the 09/22/2022 exam with unchanged associated cytotoxic edema. Involutional changes with advanced chronic microvascular ischemic disease. Unchanged 1.2 cm focus of increased T1 signal within the left lentiform nucleus favoring laminar necrosis from a subacute infarct. Numerous chronic lacunar infarcts of the basal ganglia and villa radiata. --Appreciate neurology input --Continue dual antiplatelet therapy for 21 days -- Continue Lipitor Needs follow-up with neurology upon discharge Continue PT OT, fall precautions Continue speech therapy Plan to discharge to rehab facility when transportation arranged (2) Dementia: H/O dementia Reorient frequently to minimize delirium (3) Hypertension: Blood pressure stable (4) History of abdominal aortic aneurysm: CT of the abdomen did show a mild fusiform aneurysm of the distal abdominal aorta measuring up to 3 cm Follow-up as outpatient DVT prophylaxis SQ heparin CODE STATUS Full Code Disposition Rehab Total Time Total Time Spent Total Time Spent (In Minutes): 55 minutes Discharge Plan Discharge Items Patient Disposition: Transfer Inpatient Rehab Fac Reason For Visit: STROKE LIKE SYMPTOMS Discharge Diagnosis: Acute CVA Left MCA aneurysm Dementia H/O abdominal aortic aneurysm Activity: Per Instructions section Exercise/Sports: Gradually increase as tolerated Non-emergency contact: Primary Care Provider and Neurologist Call non-emergency contact if: you have any medication questions, your symptoms worsen, your pain is concerning for you and you have a fever Follow-up/Referrals: Jurgen FELICIANO [Primary Care Provider] - Dietitian Info: Minced and moist diet Diet: Heart Healthy Diet Comment: Aspiration precautions with all feeds Addtl Attending Provider Instructions: Follow-up with your primary care physician in 1 week upon discharge from rehab facility Follow-up with your neurologist in 4 weeks Follow-up with your neurosurgeon as outpatient for further evaluation of left middle cerebral artery aneurysm -- Continue dual antiplatelet therapy with aspirin, Plavix for 21 days and then transition to aspirin 81mg alone Seek immediate medical attention if your symptoms reoccur or worsen Please take all medications as instructed on discharge list below. Please call if you have any questions or problems. You can reach a [facility] hospitalist on duty at [facility] 24 hours a day by calling [phone] Risk Factors for Stroke: You can reduce your chances of stroke by working with your medical provider to adopt a healthy lifestyle. Some specific ways to lower your chance of stroke are: * If you are a smoker, now is the time to stop smoking cigarettes * If you are diabetic, improve the control of your blood sugars * Avoid excessive amounts of alcohol * Control high blood pressure * Lose weight if you are overweight * Be sure to lead an active lifestyle * Eat a healthy diet low in salt, cholesterol and fat You should know about other risk factors for stroke that you are unable to control. These include: * Age 55 years or older * Male gender * Certain racial groups: , or / * Family History of Stroke, Mini stroke or Heart Attack * Sickle Cell Disease Follow Up: It is important for you to keep your follow up appointments with your medical provider. Who to Call and When: Medical Emergencies: Call 911 immediately if you experience any of the following warning signs and symptoms of Stroke: * Sudden numbness or weakness of the face, arm or leg, especially on one side of the body * Sudden confusion, trouble speaking or understanding * Sudden trouble seeing in one or both eyes * Sudden trouble walking, dizziness, loss of balance or coordination * Sudden severe headache with no cause Do not delay calling 911 if you experience any warning signs or symptoms of a stroke. Delay in seeking medical attention may affect what treatments can be given to you. . Pending Studies at Discharge: No Stand-Alone Forms: My [facility], Medications to Prevent Stroke Skilled Items Patient informed of condition?: Yes DNR: No Discharge Level of Care: Acute rehab Communicable Disease: No Discharge Prognosis: Stable Lines: None Urinary Catheter: No Medications and DC Order Prescriptions: New atorvastatin 40 mg Tablet 40 mg PO DAILY Qty: 30 0RF aspirin 81 mg Tablet,Delayed Release (Dr/Ec) 81 mg PO DAILY Qty: 30 0RF clopidogrel [Plavix] 75 mg tablet 75 mg PO DAILY Qty: 21 0RF Continued amlodipine 5 mg Tablet 5 mg PO BID donepezil 5 mg Tablet 5 mg PO QAM cyanocobalamin (vitamin B-12) 500 mcg Tablet 500 mcg PO QAM Discharge Orders: Discharge Order (Routine); Ordered 09/26/22 Ordered By: Darrell Landeros Admission Data Admit Date/Time: 09/21/22 20:09 Attending Provider: Darrell Landeros Admit Provider: Leroy Traore Primary Care Provider: Jurgen FELICIANO Other Providers: Leroy Traore ; Frankie Miguel ; Bhanu Browne ; Jayashree Goncalves ; Lianet Stahl ; Irma Ruiz ; Som Mancilla ; Irma Stanton ; Irving Liang ; Roosevelt Pires ; Malika Mitchell ; Dinah Ghosh ; Som Bradley ; Eris Collado ; [facility] Other Interventions: Discharge Summary Assessment (RN) Last Done: 09/26/22 11:17
== END 2022-09-26 12:26 | DRG 66 ==
LOC: ED 13:39 → SUATTDRO 20:09 → 2S 20:09